=== PATIENT | male | born 1965 | race Caucasian/White ===

== ENCOUNTER 2017-11-21 16:51 | Observation (INO) | payer MEDICAID ==
[~2017-11-21] VITALS: Ht 188 cm; Wt 100.0 kg
[~2017-11-21 16:51] MED LIST: ALBU2.5I INH; AMLO5 PO; ASPI81TA82 PO; CLAR10TA7 PO; CYCL-36 PO; GABA300C3 PO; HUMA100I SC; ISOS60 PO; JANU50TA9 PO; LANTUSP SQ; LISI10 PO; METO25 PO; OMEG306C PO; OMEP20TA39 PO; PRAV80 PO; PROZ40CA PO; RANI150 PO; SUMA25 PO
[2017-11-21] MEDS ORDERED: IOHEXOL 350 MG/ML 10 ML VIAL (for RAD DIAG) IVCONTRAST ONE (16:52)
[2017-11-21 16:55] VITALS: BP 114/69; PULSE 86; RESP 16; TEMP 98.3; O2SAT 99
[2017-11-21] MEDS ORDERED: MORPHINE SULFATE 4 MG/ML INJ IV PUSH ONE (17:00)
[2017-11-21] MEDS ORDERED: SODIUM CHLORID 0.9% 500 ML INJ 500 ML IV ONE (17:00)
[2017-11-21] MEDS ORDERED: SODIUM CHLORIDE 0.9% FLUSH 10 ML FLUSH IVF PRN (17:00)
[2017-11-21 17:04] VITALS: BP_SYST 114; BP_SYST 98; BP_DIAS 51; BP_DIAS 59
--- NOTE | 2017-11-21 17:15 | PD ---
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 He states his pain is severe, has not tried any nitroglycerin prior to arrival, he has been taking all his medications as prescribed. He cannot think of any alleviating or exacerbating factors. Mild nausea without vomiting, no shortness of breath no wheezing. PFSH Past Medical History Arthritis: Yes Asthma: Yes Anxiety: Yes Depression: Yes Heart Rhythm Problems: Yes Cancer: No Cardiac Catheterization: Yes Cardiovascular Problems: Yes High Cholesterol: Yes Chest Pain: Yes Congestive Heart Failure: Yes COPD: Yes Diabetes: Yes Patient Takes Glucophage: No Diminished Hearing: No Gastrointestinal Disorders: Yes Genitourinary: No Headaches: Yes Hypertension: Yes Immune Disorder: No Musculoskeletal: No Neurologic: No Reproductive: No Respiratory: Yes Myocardial Infarction: Yes Sleep Apnea: No Thyroid Disease: No Tetanus Vaccination: > 5 Years Influenza Vaccination: No Past Surgical History Cardiac Surgery: Yes Cholecystectomy: Yes (04/2013) Coronary Stent: Yes (x4) Eye Surgery: Yes (RIGHT LAZY EYE CORRECTIVE SURGERY) Other Surgery: Yes (TRIPLE BIPASS, 4 STENTS PLACED, RIGHT EYE SURGERY TO CORRECT LAZY EYE) Social History Alcohol Use: Yes (occasional) Tobacco Use: Yes (1/2 PPD) Substance Use: No Allergies-Medications (Allergen,Severity, Reaction): Coded Allergies: pregabalin (Unverified Allergy, Severe, Psychosis, 05/17/17) bupropion (Unverified Adverse Reaction, Intermediate, NAUSEA, VOMITING, ) ketorolac (Unverified Adverse Reaction, Intermediate, NAUSEA, 05/17/17) varenicline (Unverified Adverse Reaction, Intermediate, NAUSEA, VOMITING, 05/17/17) Reported Meds & Prescriptions Reported Meds & Active Scripts Active Reported Humalog Inj (Insulin Human Lispro) 1,000 Unit/10 Ml Vial SQ ACHS SLIDING SCALE DIRECTED Lantus Inj (Insulin Glargine) 1,000 Unit/10 Ml Vial 34 Units SQ HS Symbicort Inh (Budesonide/Formoterol Fumarate) 160-4.5 Mcg/Act Aero 2 Puff INH Q12HR Proair Hfa 8.5 GM Inh (Albuterol Sulfate) 90 Mcg/Act Aer 2 Puff INH Q6H PRN 108 mcg/actuation Percocet (Oxycodone-Acetaminophen) 7.5-325 mg Tab 1 Tab PO TID Zyrtec (Cetirizine HCl) 10 Mg Tablet 10 Mg PO DAILY Lisinopril 10 Mg Tab 10 Mg PO DAILY Ambien (Zolpidem Tartrate) 10 Mg Tab 10 Mg PO HS Metoprolol Tartrate 25 Mg Tab 25 Mg PO BID Amlodipine (Amlodipine Besylate) 5 Mg Tab 5 Mg PO DAILY Isosorbide Mononitrate ER (Isosorbide Mononitrate) 60 Mg Tab 60 Mg PO DAILY Aspirin Adult Low Strength (Aspirin) 81 Mg Tabdr 81 Mg PO DAILY Prozac (Fluoxetine HCl) 40 Mg Cap 40 Mg PO HS Flexeril (Cyclobenzaprine HCl) 10 Mg Tab 10 Mg PO BID Zantac (Ranitidine HCl) 150 Mg Tab 150 Mg PO BID Pravastatin 80 Mg Tab 80 Mg PO HS Janumet Xr (Sitagliptin-Metformin ER) 100-1,000 Mg Tab 1 Tab PO HS Nitroglycerin SL (Nitroglycerin) 0.4 Mg Subl 0.4 Mg SL DIRECTED PRN ONE TABLET UNDER THE TONGUE NEEDED FOR CHEST PAIN, MAY REPEAT EVERY FIVE MINUTES FOR A TOTAL OF 3 DOSES OR CALL 911 IF NO RELIEF Lyrica (Pregabalin) 150 Mg Cap 150 Mg PO TID Review of Systems Except as stated in HPI: all other systems reviewed are Neg Physical Exam Narrative GENERAL: Well-developed, thin but in no obvious distress. SKIN: Focused skin assessment warm/dry. HEAD: Atraumatic. Normocephalic. EYES: Pupils equal and round. No scleral icterus. No injection or drainage. ENT: No nasal bleeding or discharge. Mucous membranes pink and moist. NECK: Trachea midline. No JVD. CARDIOVASCULAR: Regular rate and rhythm. No murmur appreciated. 2+ bilateral equal pulses in all 4 extremities RESPIRATORY: No accessory muscle use. Clear to auscultation. Breath sounds equal bilaterally. GASTROINTESTINAL: Abdomen soft, non-tender, nondistended. Hepatic and splenic margins not palpable. MUSCULOSKELETAL: No obvious deformities. No clubbing. No cyanosis. No edema. NEUROLOGICAL: Awake and alert. No obvious cranial nerve deficits. Motor grossly within normal limits. Normal speech. PSYCHIATRIC: Appropriate mood and affect; insight and judgment normal. Data Data Last Documented VS Vital Signs Date Time Temp Pulse Resp B/P (MAP) Pulse Ox O2 Delivery O2 Flow Rate FiO2 11/21/17 19:24 73 20 108/74 (85) 100 Nasal Cannula 2.00 11/21/17 16:55 98.3 Orders Orders Electrocardiogram (11/21/17 16:59) Ckmb (Isoenzyme) Profile (11/21/17 16:59) Complete Blood Count With Diff (11/21/17 16:59) Comprehensive Metabolic Panel (11/21/17 16:59) Magnesium (Mg) (11/21/17 16:59) Prothrombin Time / Inr (Pt) (11/21/17 16:59) Act Partial Throm Time (Ptt) (11/21/17 16:59) Troponin I (11/21/17 16:59) Chest, Single Ap (11/21/17 16:59) Ecg Monitoring (11/21/17 16:59) Bilateral Bp Monitoring (11/21/17 16:59) Iv Access Insert/Monitor (11/21/17 16:59) Oximetry (11/21/17 16:59) Oxygen Administration (11/21/17 16:59) Morphine Inj (Morphine Inj) (11/21/17 17:00) Sodium Chloride 0.9% Flush (Ns Flush) (11/21/17 17:00) Sodium Chlorid 0.9% 500 Ml Inj (Ns 500 M (11/21/17 17:00) CKMB (11/21/17 17:14) CKMB% (11/21/17 17:14) Ct Pulmonary Angiogram (11/21/17 ) Iohexol 350 Inj (Omnipaque 350 Inj) (11/21/17 16:52) Labs Laboratory Tests Test 11/21/17 17:14 White Blood Count 8.4 TH/MM3 Red Blood Count 4.71 MIL/MM3 Hemoglobin 13.8 GM/DL Hematocrit 39.9 % Mean Corpuscular Volume 84.7 FL Mean Corpuscular Hemoglobin 29.4 PG Mean Corpuscular Hemoglobin Concent 34.7 % Red Cell Distribution Width 15.0 % Platelet Count 195 TH/MM3 Mean Platelet Volume 9.1 FL Neutrophils (%) (Auto) 61.8 % Lymphocytes (%) (Auto) 24.3 % Monocytes (%) (Auto) 9.1 % Eosinophils (%) (Auto) 4.1 % Basophils (%) (Auto) 0.7 % Neutrophils # (Auto) 5.2 TH/MM3 Lymphocytes # (Auto) 2.0 TH/MM3 Monocytes # (Auto) 0.8 TH/MM3 Eosinophils # (Auto) 0.3 TH/MM3 Basophils # (Auto) 0.1 TH/MM3 CBC Comment DIFF FINAL Differential Comment Prothrombin Time 10.1 SEC Prothromb Time International Ratio 1.0 RATIO Activated Partial Thromboplast Time 26.6 SEC Blood Urea Nitrogen 17 MG/DL Creatinine 0.93 MG/DL Random Glucose 144 MG/DL Total Protein 7.5 GM/DL Albumin 3.6 GM/DL Calcium Level 8.5 MG/DL Magnesium Level 1.9 MG/DL Alkaline Phosphatase 73 U/L Aspartate Amino Transf (AST/SGOT) 13 U/L Alanine Aminotransferase (ALT/SGPT) 18 U/L Total Bilirubin 0.4 MG/DL Sodium Level 136 MEQ/L Potassium Level 3.9 MEQ/L Chloride Level 108 MEQ/L Carbon Dioxide Level 19.1 MEQ/L Anion Gap 9 MEQ/L Estimat Glomerular Filtration Rate 85 ML/MIN Total Creatine Kinase 188 U/L Creatine Kinase MB 1.3 NG/ML Troponin I LESS THAN 0.02 NG/ML MDM Medical Decision Making Medical Screen Exam Complete: Yes Emergency Medical Condition: Yes Differential Diagnosis Aortic dissection unlikely but possible, ACS, DE, atrial fibrillation, Narrative Course 52-year-old male presents emergency department with chest tightness, 4 mg of morphine given the patient does appear to be much more comfortable. Patient was initially hypotensive in the field with 80 over palp blood pressure in the left upper extremity, there is a slight discrepancy between the blood pressures of the to upper extremities and therefore a CTA has been ordered of his aorta. Initial troponin negative, initial EKG shows atrial fibrillation otherwise no ischemic findings. Patient was discussed with Dr. Veras at the change of shift at 1900 with instructions to follow-up the CTA, continue the patient's workup as she deems necessary. Discussed with her that I think the patient probably should be admitted for chest pain center observation at a minimum Diagnosis Primary Impression: Chest pain Donald Agustin MD Nov 21, 2017 17:15
[2017-11-21] MEDS ORDERED: PRAV80TA2 PO (17:21)
[2017-11-21] MEDS ORDERED: ASPI81TA16 PO (17:21)
[2017-11-21] MEDS ORDERED: ALBUAER3 INH (17:21)
[2017-11-21] MEDS ORDERED: NITR1SUB3 SL (17:21)
[2017-11-21] MEDS ORDERED: SYMB160A INH (17:21)
[2017-11-21] MEDS ORDERED: SITA100T PO (17:21)
[2017-11-21] MEDS ORDERED: PERC7.5T13 PO (17:21)
[2017-11-21] MEDS ORDERED: LISI10TA3 PO (17:21)
[2017-11-21] MEDS ORDERED: LANTUS2P SQ (17:21)
[2017-11-21] MEDS ORDERED: ISOS60TA PO (17:21)
[2017-11-21] MEDS ORDERED: CETI-1 PO (17:21)
[2017-11-21] MEDS ORDERED: AMLO5TAB2 PO (17:21)
[2017-11-21] MEDS ORDERED: ZANT150T2 PO (17:21)
[2017-11-21] MEDS ORDERED: PROZ40CA PO (17:21)
[2017-11-21] MEDS ORDERED: LYRI150C PO (17:21)
[2017-11-21] MEDS ORDERED: METO25TA3 PO (17:21)
[2017-11-21] MEDS ORDERED: HUMALOG SQ (17:21)
[2017-11-21] MEDS ORDERED: AMBI10TA PO (17:21)
[2017-11-21] MEDS ORDERED: CYCL10TA PO (17:21)
[2017-11-21 17:25] VITALS: BP 113/73; PULSE 72; RESP 16; O2SAT 100
[2017-11-21 17:39] LABS: AUTOMATED NEUTROPHIL # 5.2 TH/MM3 (1.8-7.7); BASOPHIL # 0.1 TH/MM3 (0-0.2); BASOPHIL % 0.7 % (0.0-2.0); EOSINOPHIL # 0.3 TH/MM3 (0-0.4); EOSINOPHIL % 4.1 % (0.0-4.0); HEMATOCRIT 39.9 % (39.0-51.0); HEMOGLOBIN 13.8 GM/DL (13.0-17.0); LYMPH % 24.3 % (9.0-44.0); MEAN CELL VOLUME 84.7 FL (80.0-100.0); MEAN CORPUSCULAR HEMOGLOBIN 29.4 PG (27.0-34.0); MEAN CORPUSCULAR HGB CONC 34.7 % (32.0-36.0); MEAN PLATELET VOLUME 9.1 FL (7.0-11.0); MONO % 9.1 % (0.0-8.0); MONOCYTE # 0.8 TH/MM3 (0-0.9); NEUT % 61.8 % (16.0-70.0); PLATELET COUNT 195 TH/MM3 (150-450); RED BLOOD COUNT 4.71 MIL/MM3 (4.50-5.90); WHITE BLOOD COUNT 8.4 TH/MM3 (4.0-11.0)
[2017-11-21 17:45] LABS: PROTHROMBIN TIME - PATIENT 10.1 SEC (9.8-11.6)
--- NOTE | 2017-11-21 17:54 | RADRPT ---
EXAM DATE/TIME: 11/21/2017 17:15 [facility] COMPARISON: CHEST SINGLE AP, June 07, 2016, 11:29. INDICATIONS : Chest pain, shortness of breath. MEDICAL HISTORY : Hypertension. Diabetes mellitus type II. Myocardial infarction. Smoker. SURGICAL HISTORY : CABG. Coronary artery stent. ENCOUNTER: Initial ACUITY: 1 day PAIN SCORE: 9/10 LOCATION: Left chest FINDINGS: A single view of the chest demonstrates the lungs to be symmetrically aerated without evidence of mas s, infiltrate or effusion. The cardiomediastinal contours are unremarkable. Osseous structures are intact. Median sternotomy with intact sternal wire sutures. CONCLUSION: The lungs are clear. Ray Odell MD on November 21, 2017 at 17:52 Board Certified Radiologist. This report was verified electronically.
[2017-11-21 18:01] LABS: ALBUMIN 3.6 GM/DL (3.4-5.0); ALT (GPT) 18 U/L (12-78); AST (GOT) 13 U/L (15-37); BICARBONATE 19.1 MEQ/L (21.0-32.0); BLOOD UREA NITROGEN 17 MG/DL (7-18); CALCIUM 8.5 MG/DL (8.5-10.1); CHLORIDE 108 MEQ/L (98-107); CREATININE 0.93 MG/DL (0.60-1.30); GLOMERULAR FILTRATION RATE 85 ML/MIN (>89); GLUCOSE,RANDOM 144 MG/DL (74-106); MAGNESIUM 1.9 MG/DL (1.5-2.5); SODIUM (NA) 136 MEQ/L (136-145)
[2017-11-21 18:03] LABS: ALKALINE PHOSPHATASE 73 U/L (45-117); TOTAL BILIRUBIN ADULT 0.4 MG/DL (0.2-1.0); TOTAL PROTEIN 7.5 GM/DL (6.4-8.2); TROPONIN I LESS THAN 0.02 NG/ML (0.02-0.05)
[2017-11-21 19:24] VITALS: BP 108/74; PULSE 73; RESP 20; O2SAT 100
--- NOTE | 2017-11-21 20:17 | PD ---
Data Data Last Documented VS Vital Signs Date Time Temp Pulse Resp B/P (MAP) Pulse Ox O2 Delivery O2 Flow Rate FiO2 11/21/17 19:24 73 20 108/74 (85) 100 Nasal Cannula 2.00 11/21/17 16:55 98.3 Orders Orders Electrocardiogram (11/21/17 16:59) Ckmb (Isoenzyme) Profile (11/21/17 16:59) Complete Blood Count With Diff (11/21/17 16:59) Comprehensive Metabolic Panel (11/21/17 16:59) Magnesium (Mg) (11/21/17 16:59) Prothrombin Time / Inr (Pt) (11/21/17 16:59) Act Partial Throm Time (Ptt) (11/21/17 16:59) Troponin I (11/21/17 16:59) Chest, Single Ap (11/21/17 16:59) Ecg Monitoring (11/21/17 16:59) Bilateral Bp Monitoring (11/21/17 16:59) Iv Access Insert/Monitor (11/21/17 16:59) Oximetry (11/21/17 16:59) Oxygen Administration (11/21/17 16:59) Morphine Inj (Morphine Inj) (11/21/17 17:00) Sodium Chloride 0.9% Flush (Ns Flush) (11/21/17 17:00) Sodium Chlorid 0.9% 500 Ml Inj (Ns 500 M (11/21/17 17:00) CKMB (11/21/17 17:14) CKMB% (11/21/17 17:14) Iohexol 350 Inj (Omnipaque 350 Inj) (11/21/17 16:52) Cta Thor Abd Aorta W Iv C W3d (11/21/17 ) Admit Order (Ed Use Only) (11/21/17 20:48) Labs Laboratory Tests Test 11/21/17 17:14 White Blood Count 8.4 TH/MM3 Red Blood Count 4.71 MIL/MM3 Hemoglobin 13.8 GM/DL Hematocrit 39.9 % Mean Corpuscular Volume 84.7 FL Mean Corpuscular Hemoglobin 29.4 PG Mean Corpuscular Hemoglobin Concent 34.7 % Red Cell Distribution Width 15.0 % Platelet Count 195 TH/MM3 Mean Platelet Volume 9.1 FL Neutrophils (%) (Auto) 61.8 % Lymphocytes (%) (Auto) 24.3 % Monocytes (%) (Auto) 9.1 % Eosinophils (%) (Auto) 4.1 % Basophils (%) (Auto) 0.7 % Neutrophils # (Auto) 5.2 TH/MM3 Lymphocytes # (Auto) 2.0 TH/MM3 Monocytes # (Auto) 0.8 TH/MM3 Eosinophils # (Auto) 0.3 TH/MM3 Basophils # (Auto) 0.1 TH/MM3 CBC Comment DIFF FINAL Differential Comment Prothrombin Time 10.1 SEC Prothromb Time International Ratio 1.0 RATIO Activated Partial Thromboplast Time 26.6 SEC Blood Urea Nitrogen 17 MG/DL Creatinine 0.93 MG/DL Random Glucose 144 MG/DL Total Protein 7.5 GM/DL Albumin 3.6 GM/DL Calcium Level 8.5 MG/DL Magnesium Level 1.9 MG/DL Alkaline Phosphatase 73 U/L Aspartate Amino Transf (AST/SGOT) 13 U/L Alanine Aminotransferase (ALT/SGPT) 18 U/L Total Bilirubin 0.4 MG/DL Sodium Level 136 MEQ/L Potassium Level 3.9 MEQ/L Chloride Level 108 MEQ/L Carbon Dioxide Level 19.1 MEQ/L Anion Gap 9 MEQ/L Estimat Glomerular Filtration Rate 85 ML/MIN Total Creatine Kinase 188 U/L Creatine Kinase MB 1.3 NG/ML Troponin I LESS THAN 0.02 NG/ML [facility] Medical Record Reviewed: Yes Supervised Visit with MAGI: No Interpretation(s) Last Impressions Chest X-Ray 11/21/17 1659 Signed Impressions: Service Date/Time: Tuesday, November 21, 2017 17:15 - CONCLUSION: The lungs are clear. Ray Odell MD Aorta CTA 11/21/17 0000 Signed Impressions: Service Date/Time: Tuesday, November 21, 2017 18:35 - CONCLUSION: 1. Mild stable ectasia of the ascending thoracic aorta measuring up to 3.7 cm. 2. Otherwise, no aortic aneurysm or dissection. 3. Ulcerated noncalcified plaque which results in moderate stenosis of the left common iliac origin. 4. Stable 7 mm subpleural nodule in the superior segment of the right lower lobe. This has been stable since 06/07/2016, 1.5 years. Consider followup examination in 6 months to 1 year to document stability beyond 2 years. 5. Mild upper lobe predominant paraseptal emphysema. 6. Additional ancillary findings, as above. Justyn Childs MD Narrative Course During the course of the patient's emergency department visit, the patient's history, examination, and differential diagnosis were reviewed with the patient. The patient was placed on a hot patcher with oximetry and frequent blood pressure monitoring. The patient had IV access obtained and blood work sent for analysis. The patient's case was checked out to me by Dr. Agustin. Please see his complete history and physical. The patient's case was checked out to me at the conclusion of his shift. He recommended that if the patient's CTA of the aorta is negative that the patient be admitted to the chest pain center for rule out serial cardiac enzyme protocol. The patient was initially provided morphine for pain, Zofran for nausea, normal saline at 500 mL bolus 1. The patient's laboratory studies were reviewed and remarkable for a white count of 8.4, hemoglobin 13.8, platelets 195 with 9.1 monocytes, CMP is remarkable for chloride of 108, CO2 19.1, glucose 144, AST 13, initial set of cardiac enzymes are negative, PT 10.1, PTT 26.6 Radiology studies were reviewed and remarkable for a chest x-ray that shows no acute cardiopulmonary disease. CTA of the aorta reveals mild stable ectasia of the ascending thoracic aorta measuring up to 3.7 cm, otherwise no aortic aneurysm or dissection, ulcerated noncalcified plaque which results in moderate stenosis of the left common iliac origin, stable 7 mm subpleural nodule in the superior segment of the right lower lobe that has been stable since June 2016. In reviewing the electronic medical record the patient last had a stress test done at this facility in June 2016. The patient has a known history of coronary artery disease status post coronary artery bypass grafting and stent placement in the past. The patient will be admitted to the chest pain center for rule out serial cardiac enzyme protocol followed by consideration for stress testing by the admitting mortgage loan originator. The patient's results were discussed with the patient, including the plan of care. I explained that further testing and/ or monitoring is indicated based on the patient's history, examination, and/ or laboratory findings. Therefore, I recommended admission for additional evaluation. The patient expressed understanding and was agreeable with this plan. The patient was admitted to the hospital in stable condition and sent to a bed under the care of the chest pain center. Diagnosis Primary Impression: Chest pain Admitting Information Admitting Physician Requests: Observation Rosangela Veras MD Nov 21, 2017 20:17
--- NOTE | 2017-11-21 20:30 | RADRPT ---
EXAM DATE/TIME: 11/21/2017 18:35 [facility] COMPARISON: CTA CHEST W 3D RECON, June 07, 2016, 12:19. INDICATIONS : Patient complains of chest pain, evaluate for aortic dissection. IV CONTRAST: 86 cc Omnipaque 350 (iohexol) IV RADIATION DOSE: 17.02 CTDIvol (mGy) MEDICAL HISTORY : Cardiovascular disease. Hypertension. Chronic obstructive pulmonary disease.diabetic SURGICAL HISTORY : Cholecystectomy. ENCOUNTER: Initial ACUITY: 1 day PAIN SCALE: 9/10 LOCATION: chest TECHNIQUE: Volumetric scanning was performed using a multi-row detector CT scanner. The data was post processed with a variety of visualization algorithms including full volume maximum intensity projection, multi -planar sliding thin slab reformation, curved planar reformation, and surface rendering techniques. Using automated exposure control and adjustment of the mA and/or kV according to patient size, radiat ion dose was kept as low as reasonably achievable to obtain optimal diagnostic quality images. DICOM format image data is available electronically for review and comparison. FINDINGS: LUNGS: Mild upper lobe predominant paraseptal emphysema. Stable 7 mm subpleural nodule in the superior segme nt of the right lower lobe. Bibasilar groundglass opacities which may reflect volume loss or air trap ping. MEDIASTINUM: Postsurgical fusions of prior CABG. Heart is grossly unremarkable. No significant pericardial effusio n. ABDOMEN: The liver and spleen are free of focal defects. The gallbladder and pancreas demonstrate no abnormali ty. The adrenal glands are normal. The kidneys demonstrate no evidence of solid renal mass or hydrone phrosis. No free fluid or abdominal masses are identified. No para-aortic adenopathy is seen. Mild si gmoid diverticulosis. Bowel is grossly unremarkable. Appendix is visualized and normal. No significan t drainable fluid collection. PELVIS: No evidence of free fluid or pelvic mass. No abnormally enlarged inguinal or retroperitoneal lymph no meghan are present. The bladder is unremarkable. Small fat-containing right inguinal hernia. THORACIC AORTA: Ectasia of the ascending thoracic aorta measuring up to 3.7 cm. This appears unchanged from prior exa m. Standard three-vessel arch anatomy. Proximal arch vessels are patent. The thoracic arch is normal in caliber. Descending thoracic aorta is normal in caliber. No evidence for aneurysm or dissection. ABDOMINAL AORTA: The aorta is normal in caliber without aneurysm or dissection. Mild atherosclerotic calcifications o f the distal aorta. 2 left and 3 right renal arteries. All renal arteries are patent. The optimal omaira nosis of the celiac origin. SMA and MAX are patent. PELVIC VESSELS: Moderate stenosis of the left common iliac origin secondary to ulcerated noncalcified plaque. Iliac a rteries are otherwise patent. CONCLUSION: 1. Mild stable ectasia of the ascending thoracic aorta measuring up to 3.7 cm. 2. Otherwise, no aortic aneurysm or dissection. 3. Ulcerated noncalcified plaque which results in moderate stenosis of the left common iliac origin. 4. Stable 7 mm subpleural nodule in the superior segment of the right lower lobe. This has been stabl e since 06/07/2016, 1.5 years. Consider followup examination in 6 months to 1 year to document stabilit y beyond 2 years. 5. Mild upper lobe predominant paraseptal emphysema. 6. Additional ancillary findings, as above. Justyn Childs MD on November 21, 2017 at 20:19 Board Certified Radiologist. This report was verified electronically.
[2017-11-21] MEDS: SODIUM CHLOR 0.9% 1000 ML INJ 1,000 ML IV SCH (20:53)
[2017-11-21] MEDS ORDERED: SODIUM CHLORIDE 0.9% FLUSH 10 ML FLUSH IV FLUSH PRN (21:00)
[2017-11-21] MEDS ORDERED: ASPIRIN 81 MG CHEW TAB PO ONE (21:00)
[2017-11-21] MEDS ORDERED: ONDANSETRON HCL 4 MG/2 ML VIAL IV PUSH PRN (21:00)
[2017-11-21] MEDS: SODIUM CHLORIDE 0.9% FLUSH 10 ML FLUSH IV FLUSH SCH (21:00)
[2017-11-21] MEDS: FAMOTIDINE 20 MG TAB PO SCH (21:00)
[2017-11-21] MEDS: ACETAMINOPHEN/HYDROcodone 325 MG/7.5 MG TAB PO PRN (21:43)
[2017-11-21 22:29] VITALS: BP 113/66; PULSE 99; RESP 16; TEMP 98; O2SAT 99
[2017-11-21 22:38] LABS: TROPONIN I LESS THAN 0.02 NG/ML (0.02-0.05)
[2017-11-21 22:42] VITALS: PULSE 72
[2017-11-22] VITALS (8 sets, daily range): BP systolic 96–114; BP diastolic 51–83; PULSE 60–80; RESP 16–20; TEMP 97.4–98; O2SAT 95–99
[2017-11-22] MEDS: NITROGLYCERIN 2% OINT 1 GM PACKET TOP SCH ×3 (00:27→11:15)
[2017-11-22 01:02] LABS: TROPONIN I LESS THAN 0.02 NG/ML (0.02-0.05)
[2017-11-22] MEDS: ACETAMINOPHEN/HYDROcodone 325 MG/7.5 MG TAB PO PRN ×3 (02:09→11:16)
[2017-11-22] MEDS: SODIUM CHLOR 0.9% 1000 ML INJ 1,000 ML IV SCH (06:53)
[2017-11-22] MEDS: SODIUM CHLORIDE 0.9% FLUSH 10 ML FLUSH IV FLUSH SCH (08:29)
[2017-11-22] MEDS: FAMOTIDINE 20 MG TAB PO SCH (08:29)
[2017-11-22] MEDS ORDERED: oxyCODONE/ACETAMINOPHEN 7.5 MG/325 MG TAB PO PRN (08:30)
[2017-11-22] MEDS ORDERED: ISOSORBIDE MONONITRATE 60 MG CR TAB (IMDUR) PO SCH (08:43)
[2017-11-22] MEDS ORDERED: GLUCAGON 1 MG/ML VIAL OTHER PRN (08:45)
[2017-11-22] MEDS ORDERED: DEXTROSE 50% IN WATER 50 ML VIAL(D50) IV PUSH PRN (08:45)
[2017-11-22] MEDS ORDERED: METOPROLOL TARTRATE 25 MG TAB PO SCH (09:00)
[2017-11-22] MEDS ORDERED: PREGABALIN 75 MG CAP PO SCH (09:00)
[2017-11-22] MEDS ORDERED: amLODIPine BESYLATE 5 MG TAB PO SCH (09:00)
[2017-11-22] MEDS ORDERED: LISINOPRIL 10 MG TAB PO SCH (09:00)
[2017-11-22] MEDS ORDERED: FAMOTIDINE 20 MG TAB PO SCH (09:00)
[2017-11-22] MEDS ORDERED: REGADENOSON INJ 0.4 MG/5 ML SYR ONE (09:47)
--- NOTE | 2017-11-22 11:03 | RADRPT ---
EXAM DATE/TIME: 11/22/2017 09:27 [facility] COMPARISON: MYOCARDIAL PERF PHARM SPECT, GATED W/EF, June 08, 2016, 10:17. INDICATIONS : Chest pain for 1 day. Angina. Myocardial infarction. DOSE: 35 mCi Tc99m Myoview at stress. 11 mCi Tc99m Myoview at rest. 0.4 mg Lexiscan STRESS SYMPTOMS: Dyspnea nausea and headache. EJECTION FRACTION: 29% MEDICAL HISTORY : Hypertension. Cardiovascular disease Congestive heart failure. COPD. SURGICAL HISTORY : Coronary artery stent. CABG ENCOUNTER: Initial ACUITY: 1 day PAIN SCALE: 3/10 LOCATION: Bilateral chest TECHNIQUE: The patient underwent pharmacologic stress with infusion of prescribed dose. Continuous ECG tracing was monitored during stress. Gated SPECT imaging was performed after stress and conventional SPECT i maging was performed at rest. The examination was performed on a SPECT/CT scanner, both attenuation and non-corrected datasets were reviewed. FINDINGS: DISTRIBUTION: The maximum perfused segment at stress is in the septal wall. PERFUSION STUDY: The perfusion portion of the examination demonstrates sizable fixed defects involving the anterior an d inferior finn down near the cardiac apex. No definite reversible defect is identified. GATED STUDY: The gated study demonstrated global hypokinesis with severely diminished ejection fraction. CONCLUSION: 1. No definite reversible perfusion defect to indicate stress-induced myocardial ischemia is identifi ed. 2. Large, fixed perfusion defects as above suggesting old areas of infarct. 3. Severely diminished ejection fraction at 29%. RISK CATEGORY: High (>3% Annual Mortality Rate) Naga Hutchinson MD on November 22, 2017 at 11:00 Board Certified Radiologist. This report was verified electronically.
[2017-11-22] MEDS ORDERED: INSULIN ASPART SUPPLEMENTAL SCALE SQ SCH (12:00)
--- NOTE | 2017-11-22 12:19 | HHI.DCPOC ---
Discharge Care Plan Diagnosis: (1) Chest pain (2) CAD (coronary artery disease) (3) Hx of CABG (4) H/O heart artery stent (5) Cardiomyopathy (6) PVD (peripheral vascular disease) (7) Hx of carotid stenosis (8) Hypertension (9) Hyperlipidemia (10) DM (diabetes mellitus) (11) Tobacco abuse Goals to Promote Your Health * To prevent worsening of your condition and complications * To maintain your health at the optimal level Directions to Meet Your Goals Take your medications as prescribed Follow your dietary instruction Follow activity as directed Keep your appointments as scheduled Take your immunizations and boosters as scheduled If your symptoms worsen call your PCP, if no PCP go to Urgent Care Center or Emergency Room Smoking is Dangerous to Your Health. Avoid second hand smoke Call the 24-hour hour crisis hotline for domestic abuse at Lester Gonzalez Nov 22, 2017 12:19
--- NOTE | 2017-11-22 12:30 | HHI.HP ---
[facility] Primary Care Physician Mamadou Gallagher D.O. Chief Complaint Chest pain History of Present Illness This is a 52-year-old male with history of CAD status post three-vessel bypass in 2007 followed by stents since then. States last stent was 2008. Presents to ED with complaint of developing a chest discomfort while walking in his yard. States was sudden onset. Lasted about 15 minutes. He was diaphoretic and short of breath. He took a nitroglycerin and then went to bed. He woke up a few hours later and was feeling okay but then developed the discomfort again. He took another nitroglycerin and resolved the discomfort. He decided to come to the ED at that point. States that he was told that he will have to live with chest pain but this concerned him. [place] he states he was told by the commercial coordinator there is no other procedure that can be done, stated that he was offered only medical management. His last commercial coordinator no longer takes his insurance. Voices compliance with his medications. Continues to smoke, but states that he is quitting. Review of Systems General: Patient denies fevers, chills, and recent travel HEENT: Patient denies headache, sore throat, difficulty swallowing. Cardiovascular: Has the chest discomfort as mentioned above. Denies sensation of heart beating rapidly or irregularly. No syncope. He was diaphoretic. Respiratory: He was short of breath. Denies inspirational chest discomfort. Denies coughing wheezing or hemoptysis. GI: Patient denies nausea, vomiting, diarrhea, abdominal pain, bloody stools. Musculoskeletal: Chronic back pain. Patient denies joint pain or edema. Denies calf pain or edema. Neurovascular: Patient denies numbness, tingling, weakness in extremities. Denies headache. Endocrine: Denies polyuria and polydipsia. Hematologic: Denies easy bruising. Skin: Denies rash or itching. Past Family Social History Allergies: Coded Allergies: pregabalin (Unverified Allergy, Severe, Psychosis, 05/17/17) bupropion (Unverified Adverse Reaction, Intermediate, NAUSEA, VOMITING, ) ketorolac (Unverified Adverse Reaction, Intermediate, NAUSEA, 05/17/17) varenicline (Unverified Adverse Reaction, Intermediate, NAUSEA, VOMITING, 05/17/17) Past Medical History CAD with CABG and stents since then. Carotid stenosis, peripheral vascular disease, hypertension, hyperlipidemia, diabetes, chronic back pain, COPD, and tobacco abuse. Past Surgical History Heart bypass. Heart catheterizations. Cholecystectomy. Right eye surgery. Reported Medications Reported Meds & Active Scripts Active Reported Humalog Inj (Insulin Human Lispro) 1,000 Unit/10 Ml Vial SQ ACHS SLIDING SCALE DIRECTED Lantus Inj (Insulin Glargine) 1,000 Unit/10 Ml Vial 34 Units SQ HS Symbicort Inh (Budesonide/Formoterol Fumarate) 160-4.5 Mcg/Act Aero 2 Puff INH Q12HR Proair Hfa 8.5 GM Inh (Albuterol Sulfate) 90 Mcg/Act Aer 2 Puff INH Q6H PRN 108 mcg/actuation Percocet (Oxycodone-Acetaminophen) 7.5-325 mg Tab 1 Tab PO TID Zyrtec (Cetirizine HCl) 10 Mg Tablet 10 Mg PO DAILY Lisinopril 10 Mg Tab 10 Mg PO DAILY Ambien (Zolpidem Tartrate) 10 Mg Tab 10 Mg PO HS Metoprolol Tartrate 25 Mg Tab 25 Mg PO BID Amlodipine (Amlodipine Besylate) 5 Mg Tab 5 Mg PO DAILY Isosorbide Mononitrate ER (Isosorbide Mononitrate) 60 Mg Tab 60 Mg PO DAILY Aspirin Adult Low Strength (Aspirin) 81 Mg Tabdr 81 Mg PO DAILY Prozac (Fluoxetine HCl) 40 Mg Cap 40 Mg PO HS Flexeril (Cyclobenzaprine HCl) 10 Mg Tab 10 Mg PO BID Zantac (Ranitidine HCl) 150 Mg Tab 150 Mg PO BID Pravastatin 80 Mg Tab 80 Mg PO HS Janumet Xr (Sitagliptin-Metformin ER) 100-1,000 Mg Tab 1 Tab PO HS Nitroglycerin SL (Nitroglycerin) 0.4 Mg Subl 0.4 Mg SL DIRECTED PRN ONE TABLET UNDER THE TONGUE NEEDED FOR CHEST PAIN, MAY REPEAT EVERY FIVE MINUTES FOR A TOTAL OF 3 DOSES OR CALL 911 IF NO RELIEF Active Ordered Medications Current Medications Medications (Trade) Dose Ordered Sig/Song Route Start Time Stop Time Status Last Admin (NS Flush) 2 ml UNSCH PRN IVF 11/21/17 17:00 Sodium Chloride 1,000 ml @ 100 mls/hr Q10H IV 11/21/17 20:53 11/21/17 20:53 (NS Flush) 2 ml UNSCH PRN IV FLUSH 11/21/17 21:00 (NS Flush) 2 ml BID IV FLUSH 11/21/17 21:00 11/21/17 21:00 ([place] 7.5-325 Mg) 1 tab Q4H PRN PO 11/21/17 21:00 11/22/17 11:16 (Zofran Inj) 4 mg Q6H PRN IV PUSH 11/21/17 21:00 (Pepcid) 20 mg BID PO 11/21/17 21:00 11/22/17 08:29 (Nitroglycerin 2% Oint) 1 inch Q6HR TOP 11/22/17 00:00 (Norvasc) 5 mg DAILY PO 11/22/17 09:00 11/22/17 11:12 (Imdur) 60 mg DAILY@0700 PO 11/22/17 08:43 11/22/17 11:12 (Prinivil) 10 mg DAILY PO 11/22/17 09:00 11/22/17 11:12 (Lopressor) 25 mg BID PO 11/22/17 09:00 11/22/17 11:12 (Percocet 7.5-325 Mg) 1 tab TID PRN PO 11/22/17 08:30 (Pravachol) 80 mg HS PO 11/22/17 21:00 (PROzac) 40 mg HS PO 11/22/17 21:00 (NovoLOG SUPPLEMENTAL SCALE) 1 ACHS SLIDING SCALE SQ 11/22/17 12:00 (D50w (Vial) Inj) 50 ml UNSCH PRN IV PUSH 11/22/17 08:45 (Glucagon Inj) 1 mg UNSCH PRN OTHER 11/22/17 08:45 Family History There is family history of CAD. Social History Continues to smoke cigarettes at about a pack of cigarettes a day. Has occasional alcohol. Denies illicit drugs. Physical Exam Vital Signs Vital Signs Date Time Temp Pulse Resp B/P (MAP) Pulse Ox O2 Delivery O2 Flow Rate FiO2 11/22/17 10:56 97.5 80 18 114/83 (93) 99 11/22/17 08:08 69 11/22/17 07:33 97.5 73 18 98/65 (76) 95 11/22/17 05:39 98.0 68 16 106/51 (69) 98 11/22/17 05:21 98 Nasal Cannula 2.00 11/22/17 04:15 79 11/22/17 03:09 15 11/22/17 00:00 97.4 68 20 96/55 (69) 98 11/22/17 00:00 60 11/21/17 22:42 72 11/21/17 22:29 98.0 99 16 113/66 (82) 99 11/21/17 19:24 73 20 108/74 (85) 100 Nasal Cannula 2.00 11/21/17 17:25 72 16 113/73 (86) 100 Nasal Cannula 2.00 11/21/17 17:20 100 Nasal Cannula 2.00 11/21/17 17:04 114/59 (77) 98/51 (67) 11/21/17 16:55 98.3 86 16 114/69 (84) 99 Physical Exam GENERAL: This is a well-nourished, well-developed patient, in no apparent distress. Patient speaks in clear complete sentences. Patient is pleasant. HEENT: Head is atraumatic and normocephalic. Neck is supple without lymphadenopathy and trachea is midline. No JVD or carotid bruits. CARDIOVASCULAR: Regular rate and rhythm without murmurs, gallops, or rubs. RESPIRATORY: Clear to auscultation. Breath sounds equal bilaterally. No wheezes , rales, or rhonchi. Chest wall is nontender. No use of accessory muscles. GASTROINTESTINAL: Abdomen is nontender, nondistended. Abdomen soft. No obvious pulsatile mass or bruit. No CVA tenderness. Strong femoral pulses bilaterally. Normal bowel sounds in all quadrants. MUSCULOSKELETAL: Patient is moving upper and lower extremities freely. No calf tenderness or edema, no Homans sign. Strong pulses in upper and lower extremities. NEUROLOGICAL: Patient is alert and oriented. Cranial nerves 2-12 are grossly intact. No focal deficits and speech is clear. SKIN: No rash and turgor is normal. Laboratory Laboratory Tests Test 11/21/17 17:14 11/21/17 21:30 11/22/17 00:09 White Blood Count 8.4 Red Blood Count 4.71 Hemoglobin 13.8 Hematocrit 39.9 Mean Corpuscular Volume 84.7 Mean Corpuscular Hemoglobin 29.4 Mean Corpuscular Hemoglobin Concent 34.7 Red Cell Distribution Width 15.0 Platelet Count 195 Mean Platelet Volume 9.1 Neutrophils (%) (Auto) 61.8 Lymphocytes (%) (Auto) 24.3 Monocytes (%) (Auto) 9.1 Eosinophils (%) (Auto) 4.1 Basophils (%) (Auto) 0.7 Neutrophils # (Auto) 5.2 Lymphocytes # (Auto) 2.0 Monocytes # (Auto) 0.8 Eosinophils # (Auto) 0.3 Basophils # (Auto) 0.1 CBC Comment DIFF FINAL Differential Comment Prothrombin Time 10.1 Prothromb Time International Ratio 1.0 Activated Partial Thromboplast Time 26.6 Blood Urea Nitrogen 17 Creatinine 0.93 Random Glucose 144 Total Protein 7.5 Albumin 3.6 Calcium Level 8.5 Magnesium Level 1.9 Alkaline Phosphatase 73 Aspartate Amino Transf (AST/SGOT) 13 Alanine Aminotransferase (ALT/SGPT) 18 Total Bilirubin 0.4 Sodium Level 136 Potassium Level 3.9 Chloride Level 108 Carbon Dioxide Level 19.1 Anion Gap 9 Estimat Glomerular Filtration Rate 85 Total Creatine Kinase 188 153 140 Creatine Kinase MB 1.3 1.2 0.9 Troponin I LESS THAN 0.02 LESS THAN 0.02 LESS THAN 0.02 Result Diagram: 11/21/17 1714 11/21/17 1714 Imaging Last 48 hours Impressions Myocardial Perfusion Scan Nuc Med 11/22/17 0000 Signed Impressions: Service Date/Time: Wednesday, November 22, 2017 09:27 - CONCLUSION: 1. No definite reversible perfusion defect to indicate stress-induced myocardial ischemia is identified. 2. Large, fixed perfusion defects as above suggesting old areas of infarct. 3. Severely diminished ejection fraction at 29%%. RISK CATEGORY: High (>3%% Annual Mortality Rate) Naga Hutchinson MD Chest X-Ray 11/21/17 1659 Signed Impressions: Service Date/Time: Tuesday, November 21, 2017 17:15 - CONCLUSION: The lungs are clear. Ray Odell MD Aorta CTA 11/21/17 0000 Signed Impressions: Service Date/Time: Tuesday, November 21, 2017 18:35 - CONCLUSION: 1. Mild stable ectasia of the ascending thoracic aorta measuring up to 3.7 cm. 2. Otherwise, no aortic aneurysm or dissection. 3. Ulcerated noncalcified plaque which results in moderate stenosis of the left common iliac origin. 4. Stable 7 mm subpleural nodule in the superior segment of the right lower lobe. This has been stable since 06/07/2016, 1.5 years. Consider followup examination in 6 months to 1 year to document stability beyond 2 years. 5. Mild upper lobe predominant paraseptal emphysema. 6. Additional ancillary findings, as above. Justyn Childs MD Course EKGs her sinus rhythm without significant ST segment depressions or elevations. Caprini VTE Risk Assessment Caprini VTE Risk Assessment: No/Low Risk (score <= 1) Caprini Risk Assessment Model Point Value = 1 Point Value = 2 Point Value = 3 Point Value = 5 Age 41-60 Minor surgery BMI > 25 kg/m2 Swollen legs Varicose veins or History of unexplained or recurrent spontaneous Oral contraceptives or hormone replacement Sepsis (< 1 month) Serious lung disease, including pneumonia (< 1 month) Abnormal pulmonary function Acute myocardial infarction Congestive heart failure (< 1 month) History of inflammatory bowel disease Medical patient at bed rest Age 61-74 Arthroscopic surgery Major open surgery (> 45 min) Laparoscopic surgery (> 45 min) Malignancy Confined to bed (> 72 hours) Immobilizing plaster cast Central venous access Age >= 75 History of VTE Family history of VTE Factor V Leiden Prothrombin [id number] Lupus anticoagulant Anticardiolipin antibodies Elevated serum homocysteine Heparin-induced thrombocytopenia Other congenital or acquired thrombophilia Stroke (< 1 month) Elective arthroplasty Hip, pelvis, or leg fracture Acute spinal cord injury (< 1 month) Prophylaxis Regimen Total Risk Factor Score Risk Level Prophylaxis Regimen 0-1 Low Early ambulation 2 Moderate Order ONE of the following: *Sequential Compression Device (SCD) *Heparin 5000 units SQ BID 3-4 Higher Order ONE of the following medications: *Heparin 5000 units SQ TID *Enoxaparin/Lovenox 40 mg SQ daily (WT < 150 kg, CrCl > 30 mL/min) *Enoxaparin/Lovenox 30 mg SQ daily (WT < 150 kg, CrCl > 10-29 mL/min) *Enoxaparin/Lovenox 30 mg SQ BID (WT < 150 kg, CrCl > 30 mL/min) AND/OR *Sequential Compression Device (SCD) 5 or more Highest Order ONE of the following medications: *Heparin 5000 units SQ TID (Preferred with Epidurals) *Enoxaparin/Lovenox 40 mg SQ daily (WT < 150 kg, CrCl > 30 mL/min) *Enoxaparin/Lovenox 30 mg SQ daily (WT < 150 kg, CrCl > 10-29 mL/min) *Enoxaparin/Lovenox 30 mg SQ BID (WT < 150 kg, CrCl > 30 mL/min) AND *Sequential Compression Device (SCD) Assessment and Plan Assessment and Plan * Chest pain: Patient had serial cardiac enzymes and EKGs were ruling out purposes. He was seen by Dr. Juan Ramon Johnson cardiology in the chest pain center and had a Lexiscan. Lexiscan has been read by radiologist as no definite reversible perfusion defect to indicate stress-induced myocardial ischemia. There was a large fixed perfusion defect with an EF diminished at 29% . This was discussed with Dr. Johnson. Patient may be discharged at this time , continue medical management. He needs to follow-up with cardiology on outpatient basis. Return to ED for interval issues. * CAD: Follow-up with commercial coordinator. Resume medication. * Cardiomyopathy: Continue current medications. * Diabetes: Continues medications. Follow diabetic diet. * Hypertension: Continue current medication. * Hyperlipidemia: Continue current medication. * COPD: Have DuoNeb's as needed. Resume home medications. Quit smoking. * Tobacco abuse: Patient has been counseled on importance of smoking cessation. * History of Peripheral vascular disease: Quit smoking. Continue medications. Follow-up with PCP and cardiology. * History of carotid artery stenosis: Continue medications. Quit smoking. Follow-up with PCP and cardiology. Patient is stable at this time. He is agreeable to this plan. Lester Gonzalez Nov 22, 2017 12:30
--- NOTE | 2017-11-22 15:53 | EKG ---
Date Performed: 11/22/2017 Time Performed: 02:17:17 PTAGE: 52 years EKG: Sinus rhythm WITH SHORT NM INTERVAL POSSIBLE LEFT ATRIAL ENLARGEMENT INTRAVENTRICULAR CONDUCTION DELAY INFERIOR M YOCARDIAL INFARCTION ANTEROLATERAL MYOCARDIAL INFARCTION ABNORMAL ECG PREVIOUS TRACING : 11/21/2017 23.37 Since previous tracing, no significant change noted DOCTOR: Juan Ramon Johnson Interpretating Date/Time 11/22/2017 15:52:28
--- NOTE | 2017-11-22 15:55 | EKG ---
Date Performed: 11/21/2017 Time Performed: 23:37:26 PTAGE: 52 years EKG: Sinus rhythm WITH SHORT NV INTERVAL INTRAVENTRICULAR CONDUCTION DELAY INFERIOR MYOCARDIAL INFARCTION ANTEROLATERA L MYOCARDIAL INFARCTION ABNORMAL ECG PREVIOUS TRACING : 11/21/2017 16.54 Since previous tracing, no significant change noted DOCTOR: Juan Ramon Johnson Interpretating Date/Time 11/22/2017 15:53:37
--- NOTE | 2017-11-22 15:56 | EKG ---
Date Performed: 11/21/2017 Time Performed: 16:54:02 PTAGE: 52 years EKG: Sinus rhythm LEFT ATRIAL ENLARGEMENT POSSIBLE ANTERIOR MYOCARDIAL INFARCTION PROBABLE INFERIOR MYOCARDIAL INFARCT ION ABNORMAL ECG NO PREVIOUS TRACING DOCTOR: Juan Ramon Johnson Interpretating Date/Time 11/22/2017 15:54:07
--- NOTE | 2017-11-22 15:58 | TR ---
Date Performed: 11/22/2017 Time Performed: 09:57:02 DOCTOR: Juan Ramon Johnson DRUG LIST: CLINICAL HISTORY: CHEST PAIN REASON FOR TEST: CHEST PAIN REASON FOR ENDING: OBSERVATION: CONCLUSION: Lexiscan stress test was performed under standard four minute protocol. Radionuclid e was injected one minute prior to ending the test. No electrocardiographic abormalities were present to suggest ischemia. Nuclear imaging and interpretation are pending. COMMENTS:
[2017-11-22] MEDS ORDERED: PRAVASTATIN SOD 80 MG TAB PO SCH (21:00)
[2017-11-22] MEDS ORDERED: FLUoxetine HCL 20 MG CAP PO SCH (21:00)
[2017-11-23] MEDS ORDERED: LIDOCAINE VISCOUS 2% SOLN 15 ML UDC ONE (10:54)
== END 2017-11-22 15:24 | disposition home or self-care (01) ==
LOC: NEPC 16:51 → NEDA 20:49 → NEPFCDU 21:44
PROVIDERS: ADMIT Internal Medicine Interventional Cardiology; ATTEND Internal Medicine Interventional Cardiology
DX: R07.89 Other chest pain (principal); R06.02 Shortness of breath; R61 Generalized hyperhidrosis; I25.119 Atherosclerotic heart disease of native coronary artery with unspecified angina pectoris; I42.9 Cardiomyopathy, unspecified; I10 Essential (primary) hypertension; E78.5 Hyperlipidemia, unspecified; E11.51 Type 2 diabetes mellitus with diabetic peripheral angiopathy without gangrene; J44.9 Chronic obstructive pulmonary disease, unspecified; I77.810 Thoracic aortic ectasia; K57.30 Diverticulosis of large intestine without perforation or abscess without bleeding; K40.90 Unilateral inguinal hernia, without obstruction or gangrene, not specified as recurrent; I25.2 Old myocardial infarction; R94.31 Abnormal electrocardiogram [ECG] [EKG]; J43.9 Emphysema, unspecified; M54.9 Dorsalgia, unspecified; G89.29 Other chronic pain; F17.210 Nicotine dependence, cigarettes, uncomplicated; Z95.5 Presence of coronary angioplasty implant and graft; Z95.1 Presence of aortocoronary bypass graft; Z79.899 Other long term (current) drug therapy; Z79.82 Long term (current) use of aspirin; Z79.4 Long term (current) use of insulin
CPT/HCPCS: 71045; 71275; 74174; 78452; 80053; 82550; 82552; 82948; 83735; 84484; 85025; 85610; 85730; 93005; 93017; 96361; 96374; 99285; A9502; G0378; J2270; J2785; J7030; J7040; Q9967

== ENCOUNTER 2018-02-05 11:21 | Emergency (ER) | payer MEDICAID ==
[~2018-02-05] VITALS: Ht 188 cm; Wt 100.0 kg
[~2018-02-05 11:21] MED LIST changes: -ALBU2.5I INH; +ALBUAER3 INH; +AMBI10TA PO; -AMLO5 PO; +AMLO5TAB2 PO; +ASPI81TA16 PO; -ASPI81TA82 PO; +CETI-1 PO; -CLAR10TA7 PO; -CYCL-36 PO; +CYCL10TA PO; -GABA300C3 PO; -HUMA100I SC; +HUMALOG SQ; -ISOS60 PO; +ISOS60TA PO; -JANU50TA9 PO; +LANTUS2P SQ; -LANTUSP SQ; -LISI10 PO; +LISI10TA3 PO; -METO25 PO; +METO25TA3 PO; +NITR1SUB3 SL; -OMEG306C PO; -OMEP20TA39 PO; +PERC7.5T13 PO; -PRAV80 PO; +PRAV80TA2 PO; -RANI150 PO; +SITA100T PO; -SUMA25 PO; +SYMB160A INH; +ZANT150T2 PO
[2018-02-05 11:24] VITALS: BP 121/73; PULSE 67; RESP 19; TEMP 97.8; O2SAT 99
[2018-02-05 11:45] VITALS: BP 138/76; PULSE 70; RESP 18; O2SAT 100
[2018-02-05] MEDS ORDERED: ASPIRIN 81 MG CHEW TAB PO ONE (12:00)
[2018-02-05] MEDS ORDERED: SODIUM CHLORIDE 0.9% FLUSH 10 ML FLUSH IVF PRN (12:00)
[2018-02-05] MEDS ORDERED: MORPHINE SULFATE 4 MG/ML INJ IV PUSH ONE (12:00)
[2018-02-05 12:10] VITALS: RESP 18; O2SAT 98
--- NOTE | 2018-02-05 12:15 | PD ---
HPI Chief Complaint: Chest Pain Time Seen by Provider: 11:38 Travel History International Travel<30 days: No Contact w/Intl Traveler<30days: No Traveled to known affect area: No History of Present Illness HPI This is a 52-year-old male who has a history of coronary artery disease who presents to the emergency department with 2 days of left-sided chest pain, constant, pressure-like feeling like someone is sitting on his chest radiating to the left arm associated with some shortness of breath and an episode of vomiting yesterday. He has had three-vessel CABG in the past and multiple stents placed. His last catheterization was in 2012 and at that time he was told he had no intervening bowel disease. He sees Dr. Aleman in clinic. He had a nuclear stress test in November of this year which demonstrated reduced ejection fraction. He has been told by Dr. Rebolledo that he likely needs an AICD. PFSH Past Medical History Arthritis: Yes Asthma: Yes Anxiety: Yes Depression: Yes Heart Rhythm Problems: Yes Cancer: No Cardiac Catheterization: Yes Cardiovascular Problems: Yes High Cholesterol: Yes Chest Pain: Yes Congestive Heart Failure: Yes COPD: Yes Diabetes: Yes Patient Takes Glucophage: No Diminished Hearing: No Gastrointestinal Disorders: Yes Genitourinary: No Headaches: Yes Hypertension: Yes Immune Disorder: No Implanted Vascular Access Dvce: No Musculoskeletal: No Neurologic: No Reproductive: No Respiratory: Yes Myocardial Infarction: Yes Sleep Apnea: No Thyroid Disease: No Past Surgical History Cardiac Surgery: Yes Cholecystectomy: Yes (04/2013) Coronary Stent: Yes (x4) Eye Surgery: Yes (RIGHT LAZY EYE CORRECTIVE SURGERY) Other Surgery: Yes (TRIPLE BIPASS, 4 STENTS PLACED, RIGHT EYE SURGERY TO CORRECT LAZY EYE) Social History Alcohol Use: No (denies) Tobacco Use: Yes (10/03 PPD) Substance Use: No Allergies-Medications (Allergen,Severity, Reaction): Coded Allergies: bupropion (Unverified Adverse Reaction, Intermediate, NAUSEA, VOMITING, 02/05/18) ketorolac (Unverified Adverse Reaction, Intermediate, NAUSEA, 02/05/18) varenicline (Unverified Adverse Reaction, Intermediate, NAUSEA, VOMITING, 02/05/18) Reported Meds & Prescriptions Reported Meds & Active Scripts Active Reported Prilosec (Omeprazole Magnesium) 20 Mg Tab 20 Mg PO DAILY Lyrica (Pregabalin) 150 Mg Cap 150 Mg PO TID Humalog Inj (Insulin Human Lispro) 1,000 Unit/10 Ml Vial SQ ACHS SLIDING SCALE DIRECTED Lantus Inj (Insulin Glargine) 1,000 Unit/10 Ml Vial 34 Units SQ HS Symbicort Inh (Budesonide/Formoterol Fumarate) 160-4.5 Mcg/Act Aero 2 Puff INH Q12HR Proair Hfa 8.5 GM Inh (Albuterol Sulfate) 90 Mcg/Act Aer 2 Puff INH Q6H PRN 108 mcg/actuation Percocet (Oxycodone-Acetaminophen) 7.5-325 mg Tab 1 Tab PO TID Zyrtec (Cetirizine HCl) 10 Mg Tablet 10 Mg PO DAILY Lisinopril 10 Mg Tab 10 Mg PO DAILY Ambien (Zolpidem Tartrate) 10 Mg Tab 10 Mg PO HS Metoprolol Tartrate 25 Mg Tab 25 Mg PO BID Amlodipine (Amlodipine Besylate) 5 Mg Tab 5 Mg PO DAILY Isosorbide Mononitrate ER (Isosorbide Mononitrate) 60 Mg Tab 60 Mg PO DAILY Aspirin Adult Low Strength (Aspirin) 81 Mg Tabdr 81 Mg PO DAILY Prozac (Fluoxetine HCl) 40 Mg Cap 40 Mg PO HS Flexeril (Cyclobenzaprine HCl) 10 Mg Tab 10 Mg PO BID Zantac (Ranitidine HCl) 150 Mg Tab 150 Mg PO BID Pravastatin 80 Mg Tab 80 Mg PO HS Janumet Xr (Sitagliptin-Metformin ER) 100-1,000 Mg Tab 1 Tab PO HS Nitroglycerin SL (Nitroglycerin) 0.4 Mg Subl 0.4 Mg SL DIRECTED PRN ONE TABLET UNDER THE TONGUE NEEDED FOR CHEST PAIN, MAY REPEAT EVERY FIVE MINUTES FOR A TOTAL OF 3 DOSES OR CALL 911 IF NO RELIEF Review of Systems Except as stated in HPI: all other systems reviewed are Neg Physical Exam Narrative GENERAL:Well appearing, no acute distress SKIN: Focused skin assessment warm and dry. HEAD: Atraumatic. Normocephalic. EYES: Pupils equal and round. No injection or drainage. ENT: Moist mucous membranes NECK: Trachea midline. CARDIOVASCULAR: Regular rate and rhythm. No murmur appreciated. RESPIRATORY: Clear to auscultation. Breath sounds equal bilaterally. GASTROINTESTINAL: Abdomen soft, non-tender, nondistended. MUSCULOSKELETAL: No obvious deformities. NEUROLOGICAL: Awake and alert. No obvious cranial nerve deficits. Moving all extremities. PSYCHIATRIC: Appropriate mood and affect; insight and judgment normal. Data Data Last Documented VS Vital Signs Date Time Temp Pulse Resp B/P (MAP) Pulse Ox O2 Delivery O2 Flow Rate FiO2 02/05/18 12:59 59 18 106/60 (75) 98 Room Air 02/05/18 11:24 97.8 Orders Orders Electrocardiogram (02/05/18 ) Electrocardiogram (02/05/18 11:54) Complete Blood Count With Diff (02/05/18 11:54) Comprehensive Metabolic Panel (02/05/18 11:54) Troponin I (02/05/18 11:54) Ecg Monitoring (02/05/18 11:54) Bilateral Bp Monitoring (02/05/18 11:54) Iv Access Insert/Monitor (02/05/18 11:54) Oximetry (02/05/18 11:54) Oxygen Administration (02/05/18 11:54) Aspirin Chew (Aspirin Chew) (02/05/18 12:00) Sodium Chloride 0.9% Flush (Ns Flush) (02/05/18 12:00) Chest, Pa & Lat (02/05/18 11:54) Morphine Inj (Morphine Inj) (02/05/18 12:00) Troponin I (02/05/18 14:50) Electrocardiogram (02/05/18 ) Troponin I (02/05/18 14:54) Labs Laboratory Tests Test 02/05/18 12:00 02/05/18 14:54 White Blood Count 8.4 TH/MM3 Red Blood Count 4.57 MIL/MM3 Hemoglobin 13.6 GM/DL Hematocrit 38.9 % Mean Corpuscular Volume 85.2 FL Mean Corpuscular Hemoglobin 29.7 PG Mean Corpuscular Hemoglobin Concent 34.9 % Red Cell Distribution Width 15.0 % Platelet Count 172 TH/MM3 Mean Platelet Volume 9.4 FL Neutrophils (%) (Auto) 68.8 % Lymphocytes (%) (Auto) 22.9 % Monocytes (%) (Auto) 5.4 % Eosinophils (%) (Auto) 2.5 % Basophils (%) (Auto) 0.4 % Neutrophils # (Auto) 5.8 TH/MM3 Lymphocytes # (Auto) 1.9 TH/MM3 Monocytes # (Auto) 0.5 TH/MM3 Eosinophils # (Auto) 0.2 TH/MM3 Basophils # (Auto) 0.0 TH/MM3 CBC Comment DIFF FINAL Differential Comment Blood Urea Nitrogen 15 MG/DL Creatinine 1.00 MG/DL Random Glucose 182 MG/DL Total Protein 7.6 GM/DL Albumin 3.9 GM/DL Calcium Level 8.9 MG/DL Alkaline Phosphatase 77 U/L Aspartate Amino Transf (AST/SGOT) 10 U/L Alanine Aminotransferase (ALT/SGPT) 17 U/L Total Bilirubin 0.4 MG/DL Sodium Level 137 MEQ/L Potassium Level 4.0 MEQ/L Chloride Level 106 MEQ/L Carbon Dioxide Level 20.3 MEQ/L Anion Gap 11 MEQ/L Estimat Glomerular Filtration Rate 78 ML/MIN Troponin I LESS THAN 0.02 NG/ML LESS THAN 0.02 NG/ML MDM Medical Decision Making Medical Screen Exam Complete: Yes Emergency Medical Condition: Yes Differential Diagnosis myocardial infarction, angina, pulmonary embolism, aortic dissection Narrative Course This is a 52 year old male who has a history of prior CABG and multiple stents who presents to the emergency department with 2 days of left sided chest pain. He is known to Dr. Aleman. EKG is ischemic appearing but similar to prior. He was placed on a monitor and an IV was established. Two sets of troponin were negative. PT. had a stress stess back in november demonstrating a fixed defect, but no reversible ischemia. I discussed the case with Dr. Aleman who felt it was reasonable to send to sets of troponin, and if they were normal he would follow up with the patient in the office. The patient is comfortable with this plan. Diagnosis Primary Impression: Chest pain Qualified Codes: R07.9 - Chest pain, unspecified Patient Instructions: General Instructions Additional Instructions: If you develop worsening chest pain, shortness of breath, lightheadedness or dizziness return to the emergency department. Follow up with Dr. Aleman without fail. Med/Other Pt SpecificInfo: No Change to Meds Disposition: 01 DISCHARGE HOME Condition: Stable Liberty Raoms MD February 05, 2018 12:15
[2018-02-05 12:20] LABS: AUTOMATED NEUTROPHIL # 5.8 TH/MM3 (1.8-7.7); BASOPHIL % 0.4 % (0.0-2.0); EOSINOPHIL # 0.2 TH/MM3 (0-0.4); EOSINOPHIL % 2.5 % (0.0-4.0); HEMATOCRIT 38.9 % (39.0-51.0); HEMOGLOBIN 13.6 GM/DL (13.0-17.0); LYMPH % 22.9 % (9.0-44.0); LYMPHOCYTE # 1.9 TH/MM3 (1.0-4.8); MEAN CELL VOLUME 85.2 FL (80.0-100.0); MEAN CORPUSCULAR HEMOGLOBIN 29.7 PG (27.0-34.0); MEAN CORPUSCULAR HGB CONC 34.9 % (32.0-36.0); MEAN PLATELET VOLUME 9.4 FL (7.0-11.0); MONO % 5.4 % (0.0-8.0); MONOCYTE # 0.5 TH/MM3 (0-0.9); NEUT % 68.8 % (16.0-70.0); PLATELET COUNT 172 TH/MM3 (150-450); RED BLOOD COUNT 4.57 MIL/MM3 (4.50-5.90); WHITE BLOOD COUNT 8.4 TH/MM3 (4.0-11.0)
[2018-02-05] MEDS ORDERED: LYRI150C PO (12:43)
[2018-02-05] MEDS ORDERED: PRIL20TA2 PO (12:43)
--- NOTE | 2018-02-05 12:43 | RADRPT ---
EXAM DATE/TIME: 02/05/2018 12:31 [facility] COMPARISON: CHEST SINGLE AP, November 21, 2017, 17:15. INDICATIONS : Chest pain for one week. MEDICAL HISTORY : Hypertension. Cardiovascular disease Congestive heart failure. COPD. Smoker. SURGICAL HISTORY : Coronary artery stent. CABG. ENCOUNTER: Initial ACUITY: 1 week PAIN SCORE: 5/10 LOCATION: Bilateral chest FINDINGS: PA and lateral views of the chest demonstrate the lungs to be symmetrically aerated without evidence of mass, infiltrate or effusion. There is hyperaeration of both lung waddell. The cardiomediastinal co ntours are unremarkable and stable. There is evidence of previous cardiothoracic surgery.. Osseous s tructures are intact. No significant change compared to the prior study. CONCLUSION: No acute disease. No significant change has occurred. Sebastián Waddell MD on February 05, 2018 at 12:41 Board Certified Radiologist. This report was verified electronically.
[2018-02-05 12:58] VITALS: BP_SYST 106; BP_SYST 137; BP_DIAS 60; BP_DIAS 78; PULSE 58
[2018-02-05 12:59] VITALS: BP 106/60; PULSE 59; RESP 18; O2SAT 98
[2018-02-05 13:00] LABS: BLOOD UREA NITROGEN 15 MG/DL (7-18); GLOMERULAR FILTRATION RATE 78 ML/MIN (>89)
[2018-02-05 13:01] LABS: ALBUMIN 3.9 GM/DL (3.4-5.0); ALKALINE PHOSPHATASE 77 U/L (45-117); ALT (GPT) 17 U/L (12-78); AST (GOT) 10 U/L (15-37); BICARBONATE 20.3 MEQ/L (21.0-32.0); CALCIUM 8.9 MG/DL (8.5-10.1); CHLORIDE 106 MEQ/L (98-107); GLUCOSE,RANDOM 182 MG/DL (74-106); SODIUM (NA) 137 MEQ/L (136-145); TOTAL BILIRUBIN ADULT 0.4 MG/DL (0.2-1.0); TOTAL PROTEIN 7.6 GM/DL (6.4-8.2); TROPONIN I LESS THAN 0.02 NG/ML (0.02-0.05)
--- NOTE | 2018-02-06 11:37 | EKG ---
Date Performed: 02/05/2018 Time Performed: 15:27:27 PTAGE: 52 years EKG: SINUS BRADYCARDIA POSSIBLE LEFT ATRIAL ENLARGEMENT INFERIOR MYOCARDIAL INFARCTION ABNORMAL ECG PREVIOUS TRACING : 11/22/2017 02.17 DOCTOR: Julian Rivera Interpretating Date/Time 02/06/2018 11:34:57
--- NOTE | 2018-02-06 14:17 | EKG ---
Date Performed: 02/05/2018 Time Performed: 11:45:37 PTAGE: 52 years EKG: Sinus rhythm POSSIBLE LEFT ATRIAL ENLARGEMENT INFERIOR MYOCARDIAL INFARCTION ABNORMAL ECG NO PREVIOUS TRACING DOCTOR: Julian Rivera Interpretating Date/Time 02/06/2018 14:14:53
== END 2018-02-05 16:15 | disposition home or self-care (01) ==
LOC: NEPE 11:21
DX: R07.9 Chest pain, unspecified (principal); R94.31 Abnormal electrocardiogram [ECG] [EKG]; F41.8 Other specified anxiety disorders; E78.00 Pure hypercholesterolemia, unspecified; I50.9 Heart failure, unspecified; I11.0 Hypertensive heart disease with heart failure; J44.9 Chronic obstructive pulmonary disease, unspecified; E11.9 Type 2 diabetes mellitus without complications; I25.2 Old myocardial infarction; F17.210 Nicotine dependence, cigarettes, uncomplicated; Z95.1 Presence of aortocoronary bypass graft
CPT/HCPCS: 71046; 80053; 84484; 85025; 93005; 96374; 99285; J2270

== ENCOUNTER 2018-04-29 12:42 | Inpatient (IN) ==
[2018-04-29] MEDS ORDERED: Morphine Inj 4 MG/ML Vial IV.PUSH ONE ×2 (12:58→15:39)
[2018-04-29 13:16] LABS: Baso # (Auto) 0.1 th/mm3 (0.0-0.2); Baso % (Auto) 0.8 % (0.0-2.0); Eos # (Auto) 0.2 th/mm3 (0.0-0.4); Eos % (Auto) 2.2 % (0.0-4.0); Hematocrit 41.1 % (39.0-51.0); Hemoglobin 13.8 gm/dL (13.0-17.0); Lymph # (Auto) 2.7 th/mm3 (1.0-4.8); Lymph % (Auto) 29.2 % (9.0-44.0); Mean Corpuscular HGB Conc 33.5 % (32.0-36.0); Mean Corpuscular Hemoglobin 28.6 pg (27.0-34.0); Mean Corpuscular Volume 85.3 fL (80.0-100.0); Mean Platelet Volume 8.8 fL (7.0-11.0); Mono # (Auto) 0.7 th/mm3 (0.0-0.9); Mono % (Auto) 7.3 % (0.0-8.0); Neut # (Auto) 5.6 th/mm3 (1.8-7.7); Neut % (Auto) 60.5 % (16.0-70.0); Platelet Count 175 th/mm3 (150-450); Red Blood Count 4.81 mil/mm3 (4.50-5.90); Red Cell Distribution Width 14.6 % (11.6-17.2); White Blood Count 9.3 th/mm3 (4.0-11.0)
[2018-04-29 13:45] LABS: Anion Gap 7 meq/L (5-15); Blood Urea Nitrogen 18 mg/dL (7-18); Calcium 8.4 mg/dL (8.5-10.1); Carbon Dioxide 25.1 meq/L (21.0-32.0); Chloride 109 meq/L (98-107); Glomerular Filtration Rate 74 mL/min (>89); Glucose,Random 121 mg/dL (74-106); Lipase 56 U/L (73-393); Potassium 3.9 meq/L (3.5-5.1); Sodium 141 meq/L (136-145)
--- NOTE | 2018-04-29 13:49 | XR ---
EXAM DATE: 04/29/2018 1:45 PM EDT AGE/SEX: 52 years / Male INDICATIONS: Chest Pain CLINICAL DATA: This is the patient's initial encounter. Patient reports that signs and symptoms have been present for 1 day and indicates a pain score of 5/10. MEDICAL/SURGICAL HISTORY: Cardiovascular disease. CABG. COMPARISON: No prior exams available for comparison. FINDINGS: The lungs are clear without infiltrate, nodule, or mass. There is no appreciable pleural effusion for technique. Heart and mediastinum are unremarkable. There is evidence for prior median sternotomy. CONCLUSION: No acute cardiopulmonary disease. Electronically signed by: Tati Sow MD 04/29/2018 1:48 PM EDT
[2018-04-29 13:54] LABS: Creatine Kinase 55 U/L (39-308)
--- NOTE | 2018-04-29 13:58 | ED ---
HPI General Chief Complaint: Chest Pain Stated Complaint: Fall Time Seen by Provider: 04/29/18 12:51 Source: patient and EMS Mode of arrival: EMS Limitations: no limitations History of Present Illness HPI narrative: 52-year-old male with a history of ACS the presents to the ED for evaluation of left-sided chest pain that improves with nitroglycerin. Patient has a history of CABG as well as stent in the past. Follows with Dr. Rebolledo for cardiology. Per patient he last had a stress test about 2-1/2 months ago. Per patient he currently has a defibrillator/pacer to interrogate his heart rhythms to evaluate whether patient will require a defibrillator. Per patient all he was doing was sitting and watching TV when the chest pain came to him. Per patient he took 2 nitroglycerin. He was given 4 baby aspirins. Per patient the pain did went away but came back so he called the ambulance. Ambulance gave him another nitroglycerin with improvement of symptoms with the pain now seems to be coming back. Per patient the pain is sharp and pressure-like. Complete Quality Measures for STEMI Alert Patients Related Data Home Medications Medication Instructions Recorded Confirmed albuterol sulfate 1 puff INHALATION Q4-6H PRN 04/29/18 04/29/18 albuterol sulfate [ProAir HFA] 2 puff INHALATION Q4-6H PRN MDD 4 04/29/18 amlodipine [Norvasc] 5 mg PO DAILY 04/29/18 04/29/18 aspirin 81 mg PO DAILY 04/29/18 04/29/18 cetirizine 10 mg PO DAILY 04/29/18 04/29/18 diazepam 5 mg PO DAILY 04/29/18 04/29/18 fluoxetine [Prozac] 40 mg PO DAILY 04/29/18 04/29/18 fluticasone 2 spray INTRANASAL DAILY 04/29/18 04/29/18 insulin glargine [Lantus U-100 30 unit SUB-Q HS 04/29/18 04/29/18 Insulin] insulin lispro [Humalog U-100 1 sliding scale dose SUB-Q TID 04/29/18 04/29/18 Insulin] isosorbide mononitrate 60 mg PO DAILY 04/29/18 04/29/18 lisinopril 10 mg PO DAILY 04/29/18 04/29/18 metoprolol tartrate 25 mg PO BID 04/29/18 04/29/18 nitroglycerin [Nitrostat] 0.4 mg SUBLINGUAL Q5-15M PRN 04/29/18 04/29/18 oxycodone-acetaminophen [Percocet] 1 tab PO Q4-6H PRN 04/29/18 04/29/18 pravastatin 80 mg PO DAILY 04/29/18 04/29/18 pregabalin [Lyrica] 150 mg PO BID 04/29/18 04/29/18 pregabalin [Lyrica] 150 mg PO TID 04/29/18 04/29/18 sitagliptin-metformin [Janumet XR] 1 tab PO DAILY 04/29/18 04/29/18 zolpidem [Ambien] 10 mg PO DAILY 04/29/18 04/29/18 Allergies Allergy/AdvReac Type Severity Reaction Status Date / Time bupropion AdvReac Intermediate NAUSEA, Verified 04/29/18 13:01 VOMITING ketorolac AdvReac Intermediate NAUSEA Verified 04/29/18 13:01 varenicline AdvReac Intermediate NAUSEA, Verified 04/29/18 13:01 VOMITING [facility] Medical History Medical History Afib (Acute) Anxiety (Acute) COPD (chronic obstructive pulmonary disease) (Acute) Diabetes (Acute) Sleep disorder (Acute) Smoker (Acute) Surgical History Surgical History H/O heart bypass surgery (Acute) Hx of eye surgery (Acute) Hx of heart artery stent (Acute) Social History Social History Substance History: No History of Abuse Second Hand Smoke Exposure: Yes Smoking Status: Current every day smoker Tobacco Type: Cigarettes How Often Do You Have a Drink Containing Alcohol: Never Recent Travel in [facility] within the Last 8 Weeks: No Recent Out of Country Travel within the Last 8 Weeks: No Immunization History Tetanus Immunization: <5 Years Hx Influenza Vaccine This Season: No Course Initial Documented Vital Signs Temperature 97.7 F 04/29/18 12:52 Pulse Rate 68 04/29/18 12:52 Respiratory Rate 21 04/29/18 12:52 Blood Pressure 117/65 04/29/18 12:52 Pulse Oximetry 99 04/29/18 12:52 Last Documented Vital Signs Temperature 97.9 F 04/29/18 15:00 Pulse Rate 58 L 04/29/18 15:00 Respiratory Rate 20 04/29/18 15:00 Blood Pressure 122/64 04/29/18 15:00 Pulse Oximetry 99 04/29/18 15:00 Medical Decision Making MAGI Attestation MAIG supervised visit: Yes Attestation: I, Dr. Christensen, have reviewed the advance practice practitioner's documentation and am in agreement, met with the patient face to face, made the diagnosis, and the medical decision making was done by me. *My assessment and Findings: Patient arrives for chest pain evaluation. He has known history of CAD. OMID Bernal has reviewed with cardiology coverage and they recommended admission with heparinization. That will be the plan. Lab Data Result diagrams: 04/29/18 13:02 04/29/18 13:02 Lab Results 04/29/18 04/29/18 04/29/18 Range/Units 13:02 13:02 13:52 WBC 9.3 (4.0-11.0) th/mm3 RBC 4.81 (4.50-5.90) mil/mm3 Hgb 13.8 (13.0-17.0) gm/dL Hct 41.1 (39.0-51.0) % MCV 85.3 (80.0-100.0) fL MCH 28.6 (27.0-34.0) pg MCHC 33.5 (32.0-36.0) % RDW 14.6 (11.6-17.2) % Plt Count 175 (150-450) th/mm3 MPV 8.8 (7.0-11.0) fL Neut % (Auto) 60.5 (16.0-70.0) % Lymph % (Auto) 29.2 (9.0-44.0) % [place] % (Auto) 7.3 (0.0-8.0) % Eos % (Auto) 2.2 (0.0-4.0) % Baso % (Auto) 0.8 (0.0-2.0) % Neut # (Auto) 5.6 (1.8-7.7) th/mm3 Lymph # (Auto) 2.7 (1.0-4.8) th/mm3 [place] # (Auto) 0.7 (0.0-0.9) th/mm3 Eos # (Auto) 0.2 (0.0-0.4) th/mm3 Baso # (Auto) 0.1 (0.0-0.2) th/mm3 WBC Differential . Differential Comment Auto diff final PT 10.0 (9.8-11.6) sec INR 1.0 Ratio APTT 25.9 (24.3-30.1) sec D-Dimer Quant (PE/DVT) 0.41 (0.00-0.50) mg/L FEU Sodium 141 (136-145) meq/L Potassium 3.9 (3.5-5.1) meq/L Chloride 109 H (98-107) meq/L Carbon Dioxide 25.1 (21.0-32.0) meq/L Anion Gap 7 (5-15) meq/L BUN 18 (7-18) mg/dL Creatinine 1.05 (0.60-1.30) mg/dL Estimated GFR 74 L (>89) mL/min Random Glucose 121 H (74-106) mg/dL Calcium 8.4 L (8.5-10.1) mg/dL Total Creatine Kinase 55 (39-308) U/L Troponin I Less than 0.02 L (0.02-0.05) ng/mL Lipase 56 L (73-393) U/L Imaging Data Radiologist's impression: Chest X-Ray 04/29/18 12:58 CONCLUSION: No acute cardiopulmonary disease. Discharge Plan Discharge Disposition Patient Disposition: 30 Still Patient Physicians Team ED Provider: Dylan Christensen ED Midlevel Provider: Carlos Falcon Primary Care Provider: Mamadou Gallagher Rxs /Orders / Referrals /Forms Prescriptions: No Action fluoxetine [Prozac] 40 mg Capsule 40 mg PO DAILY RF: 0 insulin glargine [Lantus U-100 Insulin] 100 unit/mL Solution 30 unit SUB-Q HS RF: 0 cetirizine 10 mg Tablet 10 mg PO DAILY RF: 0 isosorbide mononitrate 30 mg Tablet Extended Release 24 Hr 60 mg PO DAILY RF: 0 amlodipine [Norvasc] 5 mg Tablet 5 mg PO DAILY RF: 0 pravastatin 80 mg Tablet 80 mg PO DAILY RF: 0 lisinopril 10 mg Tablet 10 mg PO DAILY RF: 0 nitroglycerin [Nitrostat] 0.4 mg Tablet, Sublingual 0.4 mg SUBLINGUAL Q5-15M PRN (Reason: Pain, Moderate) RF: 0 aspirin 81 mg Tablet,Chewable 81 mg PO DAILY RF: 0 oxycodone-acetaminophen [Percocet] 7.5-325 mg Tablet 1 tab PO Q4-6H PRN (Reason: Pain) RF: 0 zolpidem [Ambien] 10 mg Tablet 10 mg PO DAILY RF: 0 albuterol sulfate 90 mcg/actuation Hfa Aerosol Inhaler 1 puff INHALATION Q4-6H PRN (Reason: Analgesia) RF: 0 albuterol sulfate [ProAir HFA] 90 mcg/actuation Hfa Aerosol Inhaler 2 puff INHALATION Q4-6H MDD 4 PRN (Reason: Shortness Of Breath) RF: 0 fluticasone 50 mcg/actuation Issue,Suspension 2 spray INTRANASAL DAILY RF: 0 diazepam 5 mg Tablet 5 mg PO DAILY RF: 0 insulin lispro [Humalog U-100 Insulin] 100 unit/mL Cartridge 1 sliding scale dose SUB-Q TID RF: 0 metoprolol tartrate 25 mg Tablet 25 mg PO BID RF: 0 pregabalin [Lyrica] 150 mg Capsule 150 mg PO BID RF: 0 pregabalin [Lyrica] 150 mg Capsule 150 mg PO TID RF: 0 sitagliptin-metformin [Janumet XR] 100-1,000 mg Tablet, Er Multiphase 24 Hr 1 tab PO DAILY RF: 0 Discharge Instructions Patient Printed Instructions: Chest Pain (ED) Status ED Status: With Doctor
[2018-04-29 14:33] LABS: Activated Partial Thrombo Time 25.9 sec (24.3-30.1)
[2018-04-29 14:36] LABS: D-Dimer 0.41 mg/L FEU (0.00-0.50)
[2018-04-29] MEDS ORDERED: Heparin Drip 25,000 UNIT/250 ML BAG IV.CONT PRN (15:40)
[2018-04-29] MEDS ORDERED: Heparin 10,000 UNITS/10 ML Vial (for IV use) IV.PUSH STA (15:40)
[2018-04-29] MEDS ORDERED: Docusate Sodium 100 MG Capsule PO PRN (16:15)
--- NOTE | 2018-04-29 16:38 | P.HPIM ---
History of Present Illness Primary Care Physician: Mamadou Gallagher DO History of Present Illness: 52 YOWM with CAD, prior 3V CABG, IDDM, HTN, HLD, depression, tobacco abuse, and chronic pain presenting with nonradiating, left-sided substernal chest pain that started at about 10 AM this morning while he was laying in bed watching TV. He describes the pain as a pressure and sometimes stabbing. Pain was partially relieved by SL nitro that he took twice at home and once in the [facility]. He also took a baby ASA this morning and four en route in the ambulance. He states the pain did not really let up until he got to the ER and received IV morphine and even now he continues to feel some pressure in his chest. He reports associated lightheadedness, palpitations, and vomiting with the chest pain earlier today. He states he also gets frequent palpitations and currently has a loop recover in place as he is being evaluated as an outpatient for possible defibrillatory placement. The patient endorses a productive cough and shortness of breath but states he is getting over a bout of bronchitis and has completed a course of Augmentin and prednisone. He follows with Dr. Shultz ( director of quality control) and Dr. Aleman (pest control service sales agent). He had a triple bypass in 2007. His last stress test was in January when he was admitted to the chest pain center. Lexiscan at that time showed no definite perfusion defect to indicate ischemia but there were large, fixed perfusion defects suggesting old areas of infarct and he was found to have a severely diminished ejection fraction of 29% . He continues to smoke cigarettes and reports he smokes 1/2 PPD. He has been smoking about 40 years and only in the last two years has he cut back to 1/2 PPD from 1. He denies any current alcohol use and states he quit two years ago. Inpatient Certification: I certify that the inpatient services were ordered in accordance with Medicare regulations governing the order. This includes certification that hospital inpatient services are reasonable and necessary and in the case of services not specified as inpatient-only under 42 CFR 419.22(n), that they are appropriately provided as inpatient services in accordance to with the 2-midnight benchmark under 43 CFR 412.3(e) Estimated Total Length of Stay (Days): 2 Plans for Post Hospital Care: Home Review of Systems All other systems reviewed negative except as stated in HPI [facility] - History History Provided By: Patient, Adult Education Professional / EMT - Medical History Medical History: Medical History (Last Updated 04/29/18 @ 16:53 by Rosangela De Oliveira MD) Afib Anxiety COPD (chronic obstructive pulmonary disease) Chronic pain Coronary artery disease Depression Diabetes Hyperlipidemia Hypertension Neuropathy Sleep disorder Smoker - Surgical History Surgical History: Surgical History (Last Updated 04/29/18 @ 12:58 by Alison Pond) H/O heart bypass surgery Hx of eye surgery Hx of heart artery stent - Family History Family History: Family History (Last Updated 04/29/18 @ 17:09 by Rosangela De Oliveira MD) Mother Bone cancer Father Coronary artery disease - Tobacco History Second Hand Smoke Exposure: Yes Tobacco Use In Past 30 Days: Yes Smoking Status: Current every day smoker Tobacco Type: Cigarettes Packs Per Day: 0.5 Years Smoked: 40 - Alcohol History How Often Do You Have a Drink Containing Alcohol: Never (Quit drinking 2 years ago) - Substance Use History Substance History: No History of Abuse - Travel History Recent Travel in the [place] Within the Last 8 Weeks: No Recent Travel Out of the Country Within the Last 8 Weeks: No - Immunization History Tetanus Immunization: <5 Years Hx Influenza Vaccine This Season: No Medications and Allergies Active Medications: Active Medications Heparin Sodium/Dextrose (Heparin/D5w 25,000 U/250 Ml) 25,000 unit in 250 mls @ 0 mls/hr IV.CONT TITRATE PRN; Protocol PRN Reason: Per Protocol Last Admin: 04/29/18 16:03 Dose: 12 units/hr, 0.12 mls/hr Sodium Chloride (Ns Flush) 2 ml IV.FLUSH UNSCH PRN PRN Reason: FLUSH AFTER USING IV ACCESS Last Admin: 04/29/18 13:10 Dose: 2 ml Allergies Allergy/AdvReac Type Severity Reaction Status Date / Time bupropion AdvReac Intermediate NAUSEA, Verified 04/29/18 13:01 VOMITING ketorolac AdvReac Intermediate NAUSEA Verified 04/29/18 13:01 varenicline AdvReac Intermediate NAUSEA, Verified 04/29/18 13:01 VOMITING Home Medications Medication Instructions Recorded Confirmed Type albuterol sulfate 1 puff INHALATION Q4-6H PRN 04/29/18 04/29/18 History albuterol sulfate [ProAir HFA] 2 puff INHALATION Q4-6H PRN MDD 4 04/29/18 History amlodipine [Norvasc] 5 mg PO DAILY 04/29/18 04/29/18 History aspirin 81 mg PO DAILY 04/29/18 04/29/18 History cetirizine 10 mg PO DAILY 04/29/18 04/29/18 History diazepam 5 mg PO DAILY 04/29/18 04/29/18 History fluoxetine [Prozac] 40 mg PO DAILY 04/29/18 04/29/18 History fluticasone 2 spray INTRANASAL DAILY 04/29/18 04/29/18 History insulin glargine [Lantus U-100 30 unit SUB-Q HS 04/29/18 04/29/18 History Insulin] insulin lispro [Humalog U-100 1 sliding scale dose SUB-Q TID 04/29/18 04/29/18 History Insulin] isosorbide mononitrate 60 mg PO DAILY 04/29/18 04/29/18 History lisinopril 10 mg PO DAILY 04/29/18 04/29/18 History metoprolol tartrate 25 mg PO BID 04/29/18 04/29/18 History nitroglycerin [Nitrostat] 0.4 mg SUBLINGUAL Q5-15M PRN 04/29/18 04/29/18 History oxycodone-acetaminophen [Percocet] 1 tab PO Q4-6H PRN 04/29/18 04/29/18 History pravastatin 80 mg PO DAILY 04/29/18 04/29/18 History pregabalin [Lyrica] 150 mg PO BID 04/29/18 04/29/18 History pregabalin [Lyrica] 150 mg PO TID 04/29/18 04/29/18 History sitagliptin-metformin [Janumet XR] 1 tab PO DAILY 04/29/18 04/29/18 History zolpidem [Ambien] 10 mg PO DAILY 04/29/18 04/29/18 History Exam Vital signs: Vital Signs 04/29/18 12:52 04/29/18 12:58 04/29/18 13:15 Temperature 97.7 F 97.7 F Pulse Rate 68 66 Respiratory Rate 21 20 18 Blood Pressure 117/65 Blood Pressure [Left Arm] 96/61 L Blood Pressure [Right Arm] 117/61 Pulse Oximetry 99 99 04/29/18 14:00 04/29/18 15:00 04/29/18 15:30 Temperature 97.8 F 97.9 F 97.8 F Pulse Rate 68 58 L 66 Respiratory Rate 20 20 16 Blood Pressure 119/71 122/64 134/68 Blood Pressure [Left Arm] Blood Pressure [Right Arm] Pulse Oximetry 99 99 04/29/18 16:28 Temperature Pulse Rate Respiratory Rate 18 Blood Pressure Blood Pressure [Left Arm] Blood Pressure [Right Arm] Pulse Oximetry Intake & Output 04/28/18 04/29/18 04/29/18 18:59 06:59 18:59 Weight 102.512 kg Narrative: GENERAL: WN, WD male sitting up in bed in NAD. SKIN: Warm and dry. Scattered tattoos. HEENT: AT/NC. Pupils equal and round. MMM. NECK: Supple no tender LAD or JVD. HEART: Chest pain not reproducible. External loop recorder in place. RRR no m/r/ g. LUNGS: CTAB without wheezes or crackles. ABDOMEN: +BS, soft, NT, ND. EXTREMITIES: No LE edema. 1+ pedal pulses. NEURO: Awake and alert. Nonfocal. PSYCH: Appropriate mood and affect. Results - Labs CBC & Chem 7: 04/29/18 13:02 04/29/18 13:02 Labs: Short CBC 04/29/18 Range/Units 13:02 WBC 9.3 (4.0-11.0) th/mm3 Hgb 13.8 (13.0-17.0) gm/dL Hct 41.1 (39.0-51.0) % Plt Count 175 (150-450) th/mm3 BMP 04/29/18 13:02 Sodium 141 Potassium 3.9 Chloride 109 H Carbon Dioxide 25.1 BUN 18 Creatinine 1.05 Calcium 8.4 L Cardiac Enzymes 04/29/18 Range/Units 13:02 Total Creatine Kinase 55 (39-308) U/L Troponin I Less than 0.02 L (0.02-0.05) ng/mL - Imaging Impressions Chest X-Ray 04/29/18 12:58 CONCLUSION: No acute cardiopulmonary disease. Caprini VTE Risk Assessment Caprini VTE Risk Assessment: Moderate/High Risk (score >= 2) Caprini Risk Assessment Model: Point Value = 1 Point Value = 2 Point Value = 3 Point Value = 5 Age 41-60 Minor surgery BMI > 25 kg/m2 Swollen legs Varicose veins or History of unexplained or recurrent spontaneous Oral contraceptives or hormone replacement Sepsis (< 1 month) Serious lung disease, including pneumonia (< 1 month) Abnormal pulmonary function Acute myocardial infarction Congestive heart failure (< 1 month) History of inflammatory bowel disease Medical patient at bed rest Age 61-74 Arthroscopic surgery Major open surgery (> 45 min) Laparoscopic surgery (> 45 min) Malignancy Confined to bed (> 72 hours) Immobilizing plaster cast Central venous access Age >= 75 History of VTE Family history of VTE Factor V Leiden Prothrombin [id number] Lupus anticoagulant Anticardiolipin antibodies Elevated serum homocysteine Heparin-induced thrombocytopenia Other congenital or acquired thrombophilia Stroke (< 1 month) Elective arthroplasty Hip, pelvis, or leg fracture Acute spinal cord injury (< 1 month) Prophylaxis Regimen: Total Risk Factor Score Risk Level Prophylaxis Regimen 0-1 Low Early ambulation 2 Moderate Order ONE of the following: *Sequential Compression Device (SCD) *Heparin 5000 units SQ BID 3-4 Higher Order ONE of the following medications: *Heparin 5000 units SQ TID *Enoxaparin/Lovenox 40 mg SQ daily (WT < 150 kg, CrCl > 30 mL/min) *Enoxaparin/Lovenox 30 mg SQ daily (WT < 150 kg, CrCl > 10-29 mL/min) *Enoxaparin/Lovenox 30 mg SQ BID (WT < 150 kg, CrCl > 30 mL/min) AND/OR *Sequential Compression Device (SCD) 5 or more Highest Order ONE of the following medications: *Heparin 5000 units SQ TID (Preferred with Epidurals) *Enoxaparin/Lovenox 40 mg SQ daily (WT < 150 kg, CrCl > 30 mL/min) *Enoxaparin/Lovenox 30 mg SQ daily (WT < 150 kg, CrCl > 10-29 mL/min) *Enoxaparin/Lovenox 30 mg SQ BID (WT < 150 kg, CrCl > 30 mL/min) AND *Sequential Compression Device (SCD) Assessment and Plan - Plan 52 YOWM with CAD s/p CABG X3, DM, HTN, HLD, depression, and chronic pain presenting with chest pain. 1. Chest pain concern but unstable angina - Pt with known coronary artery disease s/p 3V CABG in 2007 - S/P SL nitro and ASA en route in the [facility] - Troponin negative on admission - EKG shows NSR, normal axis, no LVH, and no acute ST/T wave changes; personally reviewed - CXR with no acute process, personally reviewed - ED physician spoke to on-call pest control service sales agent who recommends heparin - Consult patient's pest control service sales agent, Dr. Aleman - Trend troponins - Serial EKGs - Morphine PRN - Supplemental O2 - Nitro paste PRN - ASA - Continue home metoprolol - Continue home statin - NPO after midnight for possible cath in the AM 2. DM - Reports last A1c was <7% - Hold home PO meds - Levemir 10 units BID - Place on SSI with accuchecks per protocol 3. HTN - Resume home Lisinopril, Imdur, metoprolol, and Amlodipine - Hydralazine PRN 4. COPD - DuoNeb PRN - Supplemental O2 5. HLD - Resume home statin 6. Depression/anxiety - Resume home Prozac and Valium 7. Chronic pain - Resume home Percocet and Lyrica DVT prophylaxis: on heparin Code Status: Full Discussed Condition With: The patient and his
[2018-04-29] MEDS ORDERED: Dextrose 50% in Water 50 ML Vial IV.PUSH PRN (17:16)
[2018-04-29 17:17] LABS: Creatine Kinase 46 U/L (39-308)
[2018-04-29] MEDS ORDERED: hydrALAZINE HCl Inj 20 MG/ML Vial IV.PUSH PRN (17:18)
[2018-04-29] MEDS: Pregabalin 75 MG Capsule PO SCH (18:35)
[2018-04-29] MEDS: Insulin Detemir Inj 1,000 UNIT/10 ML Vial SQ SCH (20:24)
[2018-04-29] MEDS: Insulin NovoLOG Aspart Correctional Sugar Inj SQ SCH (20:28)
[2018-04-29] MEDS ORDERED: diazePAM 5 MG Tablet PO SCH (21:00)
[2018-04-29] MEDS: Metoprolol Tartrate 25 MG Tablet PO SCH (21:16)
[2018-04-29] MEDS: Morphine Inj 4 MG/ML Vial IV.PUSH PRN (21:17)
[2018-04-29 23:23] LABS: Creatine Kinase 44 U/L (39-308)
[2018-04-30] MEDS: Morphine Inj 4 MG/ML Vial IV.PUSH PRN ×3 (00:51→12:23)
[2018-04-30 06:39] LABS: Hematocrit 38.8 % (39.0-51.0); Mean Corpuscular HGB Conc 33.4 % (32.0-36.0); Mean Corpuscular Hemoglobin 28.9 pg (27.0-34.0); Mean Corpuscular Volume 86.4 fL (80.0-100.0); Mean Platelet Volume 9.6 fL (7.0-11.0); Platelet Count 133 th/mm3 (150-450); Red Blood Count 4.49 mil/mm3 (4.50-5.90); Red Cell Distribution Width 14.4 % (11.6-17.2); White Blood Count 7.7 th/mm3 (4.0-11.0)
[2018-04-30 07:01] LABS: Anion Gap 5 meq/L (5-15); Blood Urea Nitrogen 16 mg/dL (7-18); Calcium 8.9 mg/dL (8.5-10.1); Carbon Dioxide 28.8 meq/L (21.0-32.0); Chloride 107 meq/L (98-107); Glomerular Filtration Rate 78 mL/min (>89); Glucose,Random 106 mg/dL (74-106); Potassium 4.2 meq/L (3.5-5.1); Sodium 141 meq/L (136-145)
[2018-04-30] MEDS: Pregabalin 75 MG Capsule PO SCH ×2 (08:59→12:00)
[2018-04-30] MEDS: Metoprolol Tartrate 25 MG Tablet PO SCH (08:59)
[2018-04-30] MEDS ORDERED: Lisinopril 10 MG Tablet PO SCH (09:00)
[2018-04-30] MEDS ORDERED: amLODIPine 5 MG Tablet PO SCH (09:00)
[2018-04-30] MEDS ORDERED: FLUoxetine 20 MG Capsule PO SCH (09:00)
[2018-04-30] MEDS ORDERED: Isosorbide Mononitrate 30 MG ER 24HR Tablet (Imdur) PO SCH (09:00)
[2018-04-30] MEDS ORDERED: Non-Formulary Drug (Fluoxetine [Prozac] 40 MG) PO SCH (09:00)
--- NOTE | 2018-04-30 10:53 | P.PNIM ---
Subjective Interval history: 52 YOWM with CAD, prior 3V CABG, IDDM, HTN, HLD, depression, tobacco abuse, and chronic pain presenting with nonradiating, left-sided substernal chest pain that started at about 10 AM this morning while he was laying in bed watching TV. He describes the pain as a pressure and sometimes stabbing. Pain was partially relieved by SL nitro that he took twice at home and once in the [facility]. He also took a baby ASA this morning and four en route in the ambulance. He states the pain did not really let up until he got to the ER and received IV morphine and even now he continues to feel some pressure in his chest. He reports associated lightheadedness, palpitations, and vomiting with the chest pain earlier today. He states he also gets frequent palpitations and currently has a loop recover in place as he is being evaluated as an outpatient for possible defibrillatory placement. The patient endorses a productive cough and shortness of breath but states he is getting over a bout of bronchitis and has completed a course of Augmentin and prednisone. He follows with Dr. Shultz ( formula checker) and Dr. Aleman (head cook). He had a triple bypass in 2007. His last stress test was in January when he was admitted to the chest pain center. Lexiscan at that time showed no definite perfusion defect to indicate ischemia but there were large, fixed perfusion defects suggesting old areas of infarct and he was found to have a severely diminished ejection fraction of 29% . He continues to smoke cigarettes and reports he smokes 1/2 PPD. He has been smoking about 40 years and only in the last two years has he cut back to 1/2 PPD from 1. He denies any current alcohol use and states he quit two years ago. 730 AWAIT CARDIOLOGY IS THREATENING TO GO AMA DENIES ANY SOB OR CHEST PAIN AT THIS TIME STILL SMOKING DW RN AND PT Physical Exam Vital signs: Vital Signs 04/29/18 12:52 04/29/18 12:58 04/29/18 13:15 Temperature 97.7 F 97.7 F Pulse Rate 68 66 Respiratory Rate 21 20 18 Blood Pressure 117/65 Blood Pressure [Left Arm] 96/61 L Blood Pressure [Right Arm] 117/61 Pulse Oximetry 99 99 04/29/18 14:00 04/29/18 15:00 07/29/18 15:30 Temperature 97.8 F 97.9 F 97.8 F Pulse Rate 68 58 L 66 Respiratory Rate 20 20 16 Blood Pressure 119/71 122/64 134/68 Blood Pressure [Left Arm] Blood Pressure [Right Arm] Pulse Oximetry 99 99 04/29/18 16:15 04/29/18 16:28 04/29/18 20:00 Temperature 97.9 F Pulse Rate 67 61 Respiratory Rate 18 18 Blood Pressure 118/81 Blood Pressure [Left Arm] Blood Pressure [Right Arm] Pulse Oximetry 98 04/29/18 20:22 04/29/18 21:18 04/30/18 00:00 Temperature 97.9 F Pulse Rate 64 65 60 Respiratory Rate 18 16 18 Blood Pressure 135/66 130/65 117/74 Blood Pressure [Left Arm] Blood Pressure [Right Arm] Pulse Oximetry 99 98 04/30/18 01:00 04/30/18 02:00 04/30/18 03:00 Temperature Pulse Rate 57 L 56 L 55 L Respiratory Rate Blood Pressure Blood Pressure [Left Arm] Blood Pressure [Right Arm] Pulse Oximetry 04/30/18 04:00 04/30/18 05:00 04/30/18 06:00 Temperature 97.8 F Pulse Rate 60 52 L 50 L Respiratory Rate 16 Blood Pressure 140/77 Blood Pressure [Left Arm] Blood Pressure [Right Arm] Pulse Oximetry 99 04/30/18 07:00 04/30/18 08:00 Temperature 97.9 F Pulse Rate 52 L 62 Respiratory Rate 16 Blood Pressure 125/72 Blood Pressure [Left Arm] Blood Pressure [Right Arm] Pulse Oximetry 99 Intake & Output 04/29/18 04/30/18 04/30/18 18:59 06:59 18:59 Intake Total 120 / 120 Output Total 400 / 400 Balance -400 / -400 120 / 120 Weight 102.512 kg 92.1 kg Intake: Oral 120 / 120 Output: Urine 400 / 400 Other: # Voids 1 Narrative: GENERAL: WN, WD male sitting up in bed in NAD. SKIN: Warm and dry. Scattered tattoos. COVERING MOST OF BODY HEENT: AT/NC. Pupils equal and round. MMM. NECK: Supple no tender LAD or JVD. HEART: Chest pain not reproducible. External loop recorder in place. RRR no m/r/ g. LUNGS: CTAB without wheezes or crackles. ABDOMEN: +BS, soft, NT, ND. EXTREMITIES: No LE edema. 1+ pedal pulses. NEURO: Awake and alert. Nonfocal. PSYCH: Appropriate mood and affect. Results - Labs CBC & Chem 7: 04/30/18 05:09 04/30/18 05:09 Laboratory Results - last 24 hr 04/29/18 04/29/18 04/29/18 13:02 13:02 13:52 WBC 9.3 RBC 4.81 Hgb 13.8 Hct 41.1 MCV 85.3 MCH 28.6 MCHC 33.5 RDW 14.6 Plt Count 175 MPV 8.8 Neut % (Auto) 60.5 Lymph % (Auto) 29.2 Brantley % (Auto) 7.3 Eos % (Auto) 2.2 Baso % (Auto) 0.8 Neut # (Auto) 5.6 Lymph # (Auto) 2.7 Brantley # (Auto) 0.7 Eos # (Auto) 0.2 Baso # (Auto) 0.1 WBC Differential . Differential Comment Auto diff final PT 10.0 INR 1.0 APTT 25.9 D-Dimer Quant (PE/DVT) 0.41 Sodium 141 Potassium 3.9 Chloride 109 H Carbon Dioxide 25.1 Anion Gap 7 BUN 18 Creatinine 1.05 Estimated GFR 74 L POC Glucose Random Glucose 121 H Calcium 8.4 L Total Creatine Kinase 55 Troponin I Less than 0.02 L Lipase 56 L 04/29/18 04/29/18 04/29/18 16:49 17:49 20:20 WBC RBC Hgb Hct MCV MCH MCHC RDW Plt Count MPV Neut % (Auto) Lymph % (Auto) Brantley % (Auto) Eos % (Auto) Baso % (Auto) Neut # (Auto) Lymph # (Auto) Brantley # (Auto) Eos # (Auto) Baso # (Auto) WBC Differential Differential Comment PT INR APTT D-Dimer Quant (PE/DVT) Sodium Potassium Chloride Carbon Dioxide Anion Gap BUN Creatinine Estimated GFR POC Glucose 246 H 179 H Random Glucose Calcium Total Creatine Kinase 46 Troponin I Less than 0.02 L Lipase 04/29/18 04/29/18 04/29/18 22:04 22:22 22:22 WBC RBC Hgb Hct MCV MCH MCHC RDW Plt Count MPV Neut % (Auto) Lymph % (Auto) Brantley % (Auto) Eos % (Auto) Baso % (Auto) Neut # (Auto) Lymph # (Auto) Brantley # (Auto) Eos # (Auto) Baso # (Auto) WBC Differential Differential Comment PT 10.0 INR 1.0 APTT 39.0 H D D-Dimer Quant (PE/DVT) Sodium Potassium Chloride Carbon Dioxide Anion Gap BUN Creatinine Estimated GFR POC Glucose 121 H Random Glucose Calcium Total Creatine Kinase 44 Troponin I Less than 0.02 L Lipase 04/30/18 04/30/18 04/30/18 05:09 05:09 08:13 WBC 7.7 RBC 4.49 L Hgb 13.0 Hct 38.8 L MCV 86.4 MCH 28.9 MCHC 33.4 RDW 14.4 Plt Count 133 L MPV 9.6 Neut % (Auto) Lymph % (Auto) Brantley % (Auto) Eos % (Auto) Baso % (Auto) Neut # (Auto) Lymph # (Auto) Brantley # (Auto) Eos # (Auto) Baso # (Auto) WBC Differential Differential Comment PT INR APTT D-Dimer Quant (PE/DVT) Sodium 141 Potassium 4.2 Chloride 107 Carbon Dioxide 28.8 Anion Gap 5 BUN 16 Creatinine 1.00 Estimated GFR 78 L POC Glucose 123 H Random Glucose 106 Calcium 8.9 Total Creatine Kinase Troponin I Less than 0.02 L Lipase 04/30/18 08:16 WBC RBC Hgb Hct MCV MCH MCHC RDW Plt Count MPV Neut % (Auto) Lymph % (Auto) Brantley % (Auto) Eos % (Auto) Baso % (Auto) Neut # (Auto) Lymph # (Auto) Brantley # (Auto) Eos # (Auto) Baso # (Auto) WBC Differential Differential Comment PT INR APTT 44.6 H D-Dimer Quant (PE/DVT) Sodium Potassium Chloride Carbon Dioxide Anion Gap BUN Creatinine Estimated GFR POC Glucose Random Glucose Calcium Total Creatine Kinase Troponin I Lipase - Imaging Impressions Chest X-Ray 04/29/18 12:58 CONCLUSION: No acute cardiopulmonary disease. Assessment and Plan - Plan 52 YOWM with CAD s/p CABG X3, DM, HTN, HLD, depression, and chronic pain presenting with chest pain. 1. Chest pain concern but unstable angina - Pt with known coronary artery disease s/p 3V CABG in 2007 - S/P SL nitro and ASA en route in the [facility] - Troponin negative on admission - EKG shows NSR, normal axis, no LVH, and no acute ST/T wave changes; personally reviewed - CXR with no acute process, personally reviewed - ED physician spoke to on-call head cook who recommends heparin - Consult patient's head cook, Dr. Aleman - Trend troponins - Serial EKGs - Morphine PRN - Supplemental O2 - Nitro paste PRN - ASA - Continue home metoprolol - Continue home statin - NPO after midnight for possible cath in the AM 2. DM - Reports last A1c was <7% - Hold home PO meds - Levemir 10 units BID - Place on SSI with accuchecks per protocol 3. HTN - Resume home Lisinopril, Imdur, metoprolol, and Amlodipine - Hydralazine PRN 4. COPD - DuoNeb PRN - Supplemental O2 5. HLD - Resume home statin 6. Depression/anxiety - Resume home Prozac and Valium 7. Chronic pain - Resume home Percocet and Lyrica 8 THROMBOCYTOPENIA AM LABS MONITOR DVT prophylaxis: on heparin Code Status: FULL CODE Discussed Condition With: RN AND PT AND CM Discharge Planning: ONCE CLEARED BY CARDIOLOGY
[2018-04-30] MEDS: Insulin Detemir Inj 1,000 UNIT/10 ML Vial SQ SCH (12:22)
[2018-04-30] MEDS: Insulin NovoLOG Aspart Correctional Sugar Inj SQ SCH ×2 (12:22→14:02)
--- NOTE | 2018-04-30 13:32 | P.DS ---
Date of admission: 04/29/18 16:36 Primary care physician: Mamadou Gallagher DO Attending physician on discharge: Liu Hart Anticipated date of discharge: 04/30/18 Brief History from admission: 52 YOWM with CAD, prior 3V CABG, IDDM, HTN, HLD, depression, tobacco abuse, and chronic pain presenting with nonradiating, left-sided substernal chest pain that started at about 10 AM this morning while he was laying in bed watching TV. He describes the pain as a pressure and sometimes stabbing. Pain was partially relieved by SL nitro that he took twice at home and once in the [facility]. He also took a baby ASA this morning and four en route in the ambulance. He states the pain did not really let up until he got to the ER and received IV morphine and even now he continues to feel some pressure in his chest. He reports associated lightheadedness, palpitations, and vomiting with the chest pain earlier today. He states he also gets frequent palpitations and currently has a loop recover in place as he is being evaluated as an outpatient for possible defibrillatory placement. The patient endorses a productive cough and shortness of breath but states he is getting over a bout of bronchitis and has completed a course of Augmentin and prednisone. He follows with Dr. Shultz ( insulation worker furnace installer) and Dr. Aleman (dentist/owner). He had a triple bypass in 2007. His last stress test was in January when he was admitted to the chest pain center. Lexiscan at that time showed no definite perfusion defect to indicate ischemia but there were large, fixed perfusion defects suggesting old areas of infarct and he was found to have a severely diminished ejection fraction of 29% . He continues to smoke cigarettes and reports he smokes 1/2 PPD. He has been smoking about 40 years and only in the last two years has he cut back to 1/2 PPD from 1. He denies any current alcohol use and states he quit two years ago. DS: Diagnosis - Discharge Diagnosis (1) Diabetes Status: Chronic (2) Noncompliance Status: Chronic (3) Tobacco abuse Status: Chronic (4) CAD (coronary artery disease) Status: Chronic (5) Hx of CABG Status: Chronic (6) COPD (chronic obstructive pulmonary disease) Status: Chronic (7) Unstable angina pectoris Status: Acute DS: Medications - Discharge Medications Prescriptions: albuterol sulfate 1 puff INHALATION Q4-6H PRN #2 inh PRN Reason: Analgesia amlodipine [Norvasc] 5 mg PO DAILY #30 tab aspirin 81 mg PO DAILY #30 tab cetirizine 10 mg PO DAILY #30 tab fluoxetine [Prozac] 40 mg PO DAILY #30 cap fluticasone 2 spray INTRANASAL DAILY #1 inh insulin glargine [Lantus U-100 Insulin] 30 unit SUB-Q HS #7 vial insulin lispro [Humalog U-100 Insulin] 1 sliding scale dose SUB-Q TID #7 vial isosorbide mononitrate 120 mg PO DAILY #30 tab lisinopril 10 mg PO DAILY #30 tab metoprolol tartrate 25 mg PO BID #60 tab nitroglycerin [Nitrostat] 0.4 mg SUBLINGUAL Q5-15M PRN #100 tab PRN Reason: Pain, Moderate pravastatin 80 mg PO DAILY #30 tab pregabalin [Lyrica] 150 mg PO TID #90 cap sitagliptin-metformin [Janumet XR] 1 tab PO DAILY #30 tab DS: Summary Hospital Course: 52 YOWM with CAD, prior 3V CABG, IDDM, HTN, HLD, depression, tobacco abuse, and chronic pain presenting with nonradiating, left-sided substernal chest pain that started at about 10 AM this morning while he was laying in bed watching TV. He describes the pain as a pressure and sometimes stabbing. Pain was partially relieved by SL nitro that he took twice at home and once in the [facility]. He also took a baby ASA this morning and four en route in the ambulance. He states the pain did not really let up until he got to the ER and received IV morphine and even now he continues to feel some pressure in his chest. He reports associated lightheadedness, palpitations, and vomiting with the chest pain earlier today. He states he also gets frequent palpitations and currently has a loop recover in place as he is being evaluated as an outpatient for possible defibrillatory placement. The patient endorses a productive cough and shortness of breath but states he is getting over a bout of bronchitis and has completed a course of Augmentin and prednisone. He follows with Dr. Shultz ( insulation worker furnace installer) and Dr. Aleman (dentist/owner). He had a triple bypass in 2007. His last stress test was in January when he was admitted to the chest pain center. Lexiscan at that time showed no definite perfusion defect to indicate ischemia but there were large, fixed perfusion defects suggesting old areas of infarct and he was found to have a severely diminished ejection fraction of 29% . He continues to smoke cigarettes and reports he smokes 1/2 PPD. He has been smoking about 40 years and only in the last two years has he cut back to 1/2 PPD from 1. He denies any current alcohol use and states he quit two years ago. 04-30 AWAIT CARDIOLOGY IS THREATENING TO GO AMA DENIES ANY SOB OR CHEST PAIN AT THIS TIME STILL SMOKING DW RN AND PT IMDUR INCREASED TO 120MG PO DAILY CLEARED BY CARDIOLOGY DC TO HOME - Time Spent with Patient Total time spent providing and/or coordinating discharge services: - Quality: VTE Deep Vein Thrombosis/Pulmonary Embolism Present on Admission: No Exam Vital signs: Vital Signs 04/29/18 14:00 04/29/18 15:00 04/29/18 15:30 Temperature 97.8 F 97.9 F 97.8 F Pulse Rate 68 58 L 66 Respiratory Rate 20 20 16 Blood Pressure 119/71 122/64 134/68 Pulse Oximetry 99 99 04/29/18 16:15 04/29/18 16:28 04/29/18 20:00 Temperature 97.9 F Pulse Rate 67 61 Respiratory Rate 18 18 Blood Pressure 118/81 Pulse Oximetry 98 04/29/18 20:22 04/29/18 21:18 04/30/18 00:00 Temperature 97.9 F Pulse Rate 64 65 60 Respiratory Rate 18 16 18 Blood Pressure 135/66 130/65 117/74 Pulse Oximetry 99 98 04/30/18 01:00 04/30/18 02:00 04/30/18 03:00 Temperature Pulse Rate 57 L 56 L 55 L Respiratory Rate Blood Pressure Pulse Oximetry 04/30/18 04:00 04/30/18 05:00 04/30/18 06:00 Temperature 97.8 F Pulse Rate 60 52 L 50 L Respiratory Rate 16 Blood Pressure 140/77 Pulse Oximetry 99 04/30/18 07:00 04/30/18 08:00 Temperature 97.9 F Pulse Rate 52 L 62 Respiratory Rate 16 Blood Pressure 125/72 Pulse Oximetry 99 Intake & Output 07/29/18 07/30/18 07/30/18 18:59 06:59 18:59 Intake Total 120 / 120 Output Total 400 / 400 Balance -400 / -400 120 / 120 Weight 102.512 kg 92.1 kg Intake: Oral 120 / 120 Output: Urine 400 / 400 Other: # Voids 1 Narrative: GENERAL: WN, WD male sitting up in bed in NAD. SKIN: Warm and dry. Scattered tattoos. COVERING MOST OF BODY HEENT: AT/NC. Pupils equal and round. MMM. NECK: Supple no tender LAD or JVD. HEART: Chest pain not reproducible. External loop recorder in place. RRR no m/r/ g. LUNGS: CTAB without wheezes or crackles. ABDOMEN: +BS, soft, NT, ND. EXTREMITIES: No LE edema. 1+ pedal pulses. NEURO: Awake and alert. Nonfocal. PSYCH: Appropriate mood and affect. Results Procedures completed during hospitalization: NONE Completed studies during hospitalization: Laboratory Results WBC 7.7 th/mm3 (4.0-11.0) 04/30/18 05:09 RBC 4.49 mil/mm3 (4.50-5.90) L 04/30/18 05:09 Hgb 13.0 gm/dL (13.0-17.0) 04/30/18 05:09 Hct 38.8 % (39.0-51.0) L 04/30/18 05:09 MCV 86.4 fL (80.0-100.0) 04/30/18 05:09 MCH 28.9 pg (27.0-34.0) 04/30/18 05:09 MCHC 33.4 % (32.0-36.0) 04/30/18 05:09 RDW 14.4 % (11.6-17.2) 04/30/18 05:09 Plt Count 133 th/mm3 (150-450) L 04/30/18 05:09 MPV 9.6 fL (7.0-11.0) 04/30/18 05:09 Neut % (Auto) 60.5 % (16.0-70.0) 04/29/18 13:02 Lymph % (Auto) 29.2 % (9.0-44.0) 04/29/18 13:02 Mccormick % (Auto) 7.3 % (0.0-8.0) 04/29/18 13:02 Eos % (Auto) 2.2 % (0.0-4.0) 04/29/18 13:02 Baso % (Auto) 0.8 % (0.0-2.0) 04/29/18 13:02 Neut # (Auto) 5.6 th/mm3 (1.8-7.7) 04/29/18 13:02 Lymph # (Auto) 2.7 th/mm3 (1.0-4.8) 04/29/18 13:02 Mccormick # (Auto) 0.7 th/mm3 (0.0-0.9) 04/29/18 13:02 Eos # (Auto) 0.2 th/mm3 (0.0-0.4) 04/29/18 13:02 Baso # (Auto) 0.1 th/mm3 (0.0-0.2) 04/29/18 13:02 WBC Differential . 04/29/18 13:02 Differential Comment Auto diff final 04/29/18 13:02 PT 10.0 sec (9.8-11.6) 04/29/18 22:22 INR 1.0 Ratio 04/29/18 22:22 APTT 44.6 sec (24.3-30.1) H 04/30/18 08:16 D-Dimer Quant (PE/DVT) 0.41 mg/L FEU (0.00-0.50) 04/29/18 13:52 Sodium 141 meq/L (136-145) 04/30/18 05:09 Potassium 4.2 meq/L (3.5-5.1) 04/30/18 05:09 Chloride 107 meq/L (98-107) 04/30/18 05:09 Carbon Dioxide 28.8 meq/L (21.0-32.0) 04/30/18 05:09 Anion Gap 5 meq/L (5-15) 04/30/18 05:09 BUN 16 mg/dL (7-18) 04/30/18 05:09 Creatinine 1.00 mg/dL (0.60-1.30) 04/30/18 05:09 Estimated GFR 78 mL/min (>89) L 04/30/18 05:09 POC Glucose 127 mg/dl (68-110) H 04/30/18 12:30 Random Glucose 106 mg/dL (74-106) 04/30/18 05:09 Calcium 8.9 mg/dL (8.5-10.1) 04/30/18 05:09 Total Creatine Kinase 44 U/L (39-308) 04/29/18 22:22 Troponin I Less than 0.02 ng/mL (0.02-0.05) L 04/30/18 05:09 Lipase 56 U/L (73-393) L 04/29/18 13:02 Impressions Chest X-Ray 04/29/18 12:58 CONCLUSION: No acute cardiopulmonary disease. Labs on day of discharge: Labs from last 24 hours 04/30/18 04/30/18 04/30/18 12:30 08:16 08:13 WBC RBC Hgb Hct MCV MCH MCHC RDW Plt Count MPV Neut % (Auto) Lymph % (Auto) Mccormick % (Auto) Eos % (Auto) Baso % (Auto) Neut # (Auto) Lymph # (Auto) Mccormick # (Auto) Eos # (Auto) Baso # (Auto) WBC Differential Differential Comment PT INR APTT 44.6 H D-Dimer Quant (PE/DVT) Sodium Potassium Chloride Carbon Dioxide Anion Gap BUN Creatinine Estimated GFR POC Glucose 127 H 123 H Random Glucose Calcium Total Creatine Kinase Troponin I Lipase 04/30/18 04/30/18 04/29/18 05:09 05:09 22:22 WBC 7.7 RBC 4.49 L Hgb 13.0 Hct 38.8 L MCV 86.4 MCH 28.9 MCHC 33.4 RDW 14.4 Plt Count 133 L MPV 9.6 Neut % (Auto) Lymph % (Auto) Mccormick % (Auto) Eos % (Auto) Baso % (Auto) Neut # (Auto) Lymph # (Auto) Mccormick # (Auto) Eos # (Auto) Baso # (Auto) WBC Differential Differential Comment PT 10.0 INR 1.0 APTT 39.0 H D D-Dimer Quant (PE/DVT) Sodium 141 Potassium 4.2 Chloride 107 Carbon Dioxide 28.8 Anion Gap 5 BUN 16 Creatinine 1.00 Estimated GFR 78 L POC Glucose Random Glucose 106 Calcium 8.9 Total Creatine Kinase Troponin I Less than 0.02 L Lipase 04/29/18 04/29/18 04/29/18 22:22 22:04 20:20 WBC RBC Hgb Hct MCV MCH MCHC RDW Plt Count MPV Neut % (Auto) Lymph % (Auto) Mccormick % (Auto) Eos % (Auto) Baso % (Auto) Neut # (Auto) Lymph # (Auto) Mccormick # (Auto) Eos # (Auto) Baso # (Auto) WBC Differential Differential Comment PT INR APTT D-Dimer Quant (PE/DVT) Sodium Potassium Chloride Carbon Dioxide Anion Gap BUN Creatinine Estimated GFR POC Glucose 121 H 179 H Random Glucose Calcium Total Creatine Kinase 44 Troponin I Less than 0.02 L Lipase 04/29/18 04/29/18 04/29/18 17:49 16:49 13:52 WBC RBC Hgb Hct MCV MCH MCHC RDW Plt Count MPV Neut % (Auto) Lymph % (Auto) Mccormick % (Auto) Eos % (Auto) Baso % (Auto) Neut # (Auto) Lymph # (Auto) Mccormick # (Auto) Eos # (Auto) Baso # (Auto) WBC Differential Differential Comment PT 10.0 INR 1.0 APTT 25.9 D-Dimer Quant (PE/DVT) 0.41 Sodium Potassium Chloride Carbon Dioxide Anion Gap BUN Creatinine Estimated GFR POC Glucose 246 H Random Glucose Calcium Total Creatine Kinase 46 Troponin I Less than 0.02 L Lipase 04/29/18 04/29/18 13:02 13:02 WBC 9.3 RBC 4.81 Hgb 13.8 Hct 41.1 MCV 85.3 MCH 28.6 MCHC 33.5 RDW 14.6 Plt Count 175 MPV 8.8 Neut % (Auto) 60.5 Lymph % (Auto) 29.2 Mccormick % (Auto) 7.3 Eos % (Auto) 2.2 Baso % (Auto) 0.8 Neut # (Auto) 5.6 Lymph # (Auto) 2.7 Mccormick # (Auto) 0.7 Eos # (Auto) 0.2 Baso # (Auto) 0.1 WBC Differential . Differential Comment Auto diff final PT INR APTT D-Dimer Quant (PE/DVT) Sodium 141 Potassium 3.9 Chloride 109 H Carbon Dioxide 25.1 Anion Gap 7 BUN 18 Creatinine 1.05 Estimated GFR 74 L POC Glucose Random Glucose 121 H Calcium 8.4 L Total Creatine Kinase 55 Troponin I Less than 0.02 L Lipase 56 L - Impressions ITS Impressions Chest X-Ray 04/29/18 12:58 CONCLUSION: No acute cardiopulmonary disease. Discharge Plan - Discharge Disposition Patient Disposition: 01 Discharge Home - Discharge Condition Condition: Good - Discharge Order Discharge Orders: Discharge Order (Routine); Ordered 04/30/18 Ordered By: Liu Hart - Discharge Details Anticipated Discharge Date: 04/30/18 Discharge Comment: DC TO HOME - Physicians Team Primary Care Provider: Mamadou Gallagher Attending Provider: Liu Hart Other Providers: Ty Gonzalez MD
--- NOTE | 2018-04-30 13:37 | MB ---
cc: Leonel Aleman MD DATE: 04/30/2018 REASON FOR CONSULTATION: Chest pain. HISTORY OF PRESENT ILLNESS: This is a 52-year-old male who is well known to me. He has a history of coronary artery disease, status post CABG in 2007, severe ischemic cardiomyopathy, hypertension, hyperlipidemia, type 2 diabetes mellitus and tobacco abuse. The patient presented to [place] emergency room with a complaint of chest pain. He was brought by the ambulance. The initial workup included a 12-lead EKG, which showed normal sinus rhythm and no acute ST changes. Three sets of cardiac enzymes came back normal. The patient is feeling much better this morning. He denies chest pain. He also denies PND, orthopnea, or lower extremity edema, or recent weight gain. SOCIAL HISTORY: Admits to smoking 1 pack a day and drinking alcohol. He has done so for a long time. FAMILY HISTORY: Noncontributory. REVIEW OF SYSTEMS: HEENT: No complaints, lightheadedness or dizziness. CARDIOVASCULAR: History of coronary artery disease, status post coronary artery bypass grafting. PULMONARY: No history of asthma or COPD. GASTROINTESTINAL: No history of GERD or GI bleed. GENITOURINARY: No history of renal failure. ENDOCRINE: Positive for hyperlipidemia and type 2 diabetes mellitus. The remainder of his review of colon within normal limits. PHYSICAL EXAMINATION: VITAL SIGNS: Showed a blood pressure of 130/70 with a heart rate of 70, respiratory rate of 12. The patient is afebrile. NECK: Supple with no jugular venous distention. CHEST: Clear to auscultation and percussion. HEART: S1, normal intensity S2 single, regular rate and rhythm. Not S3 appreciated. ABDOMEN: Benign. EXTREMITIES: No edema, clubbing or cyanosis. IMPRESSION: 1. Probable non-ST elevation acute coronary syndrome. 2. 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 3. Severe ischemic cardiomyopathy. 4. History of coronary artery disease, status post CABG in 2007. 5. Tobacco abuse. 6. Hypertension. 7. Hyperlipidemia. 8. Type 2 diabetes mellitus. RECOMMENDATIONS: The patient has been ruled out for myocardial infarction with serial CPKs and EKGs. He is chest pain free now. Because he had recent stress test showed no evidence of ischemia and old myocardial infarction, I opted to increase his Imdur to 120 mg at bedtime. I advised the patient to quit smoking since nicotine is probably causing coronary spasm. I will see him in my office next week for followup. The patient will be continued on aspirin, amlodipine, lisinopril and metoprolol. Thank you for this consultation. Leonel Aleman MD /DL , 01:18 PM , 01:28 PM
--- NOTE | 2018-04-30 21:56 | ECG ---
Date Performed: 04/30/2018 Time Performed: 01:00:50 PTAGE: 52 years EKG: Sinus bradycardia Short AL interval Prolonged QT interval Possible extensive infarct - age undetermined Abnormal ECG PREVIOUS TRACING : 04/29/2018 17.08 Since the previous tracing, no significant change noted DOCTOR: Nolberto Weir Interpretating Date/Time 04/30/2018 21:55:47
--- NOTE | 2018-04-30 22:05 | ECG ---
Date Performed: 04/29/2018 Time Performed: 17:08:38 PTAGE: 52 years EKG: Sinus rhythm LEFT ATRIAL ENLARGEMENT PROBABLE INFERIOR MYOCARDIAL INFARCTION ABNORMAL ECG PREVIOUS TRACING : 04/29/2018 12.54 Since the previous tracing, no significant change noted DOCTOR: Nolberto Weir Interpretating Date/Time 04/30/2018 22:04:26
--- NOTE | 2018-04-30 22:11 | ECG ---
Date Performed: 04/29/2018 Time Performed: 12:54:48 PTAGE: 52 years EKG: Sinus rhythm POSSIBLE LEFT ATRIAL ENLARGEMENT POSSIBLE INFERIOR MYOCARDIAL INFARCTION BORDERLINE ECG PREVIOUS TRACING : 02/05/2018 15.27 Since the previous tracing, no significant change noted DOCTOR: Nolberto Weir Interpretating Date/Time 04/30/2018 22:10:09
== END 2018-04-30 15:11 | disposition home or self-care (01) ==
LOC: NEPE 12:42 → NEDA 16:36 → HCIS 21:25
PROVIDERS: ADMIT Hospitalist; ATTEND Hospitalist
DX: I25.110 Atherosclerotic heart disease of native coronary artery with unstable angina pectoris; J44.9 Chronic obstructive pulmonary disease, unspecified; Z95.5 Presence of coronary angioplasty implant and graft; F32.9 Major depressive disorder, single episode, unspecified; I10 Essential (primary) hypertension; F17.210 Nicotine dependence, cigarettes, uncomplicated; I48.91 Unspecified atrial fibrillation; D69.6 Thrombocytopenia, unspecified; Z82.49 Family history of ischemic heart disease and other diseases of the circulatory system; E11.40 Type 2 diabetes mellitus with diabetic neuropathy, unspecified; Z79.4 Long term (current) use of insulin; I25.5 Ischemic cardiomyopathy; Z91.19 Patient's noncompliance with other medical treatment and regimen; G47.9 Sleep disorder, unspecified; E78.5 Hyperlipidemia, unspecified; Z95.1 Presence of aortocoronary bypass graft; F41.9 Anxiety disorder, unspecified